=== PATIENT | male | born 1940 | race Caucasian/White ===

== ENCOUNTER → 2017-02-15 | Outpatient (CLI) | payer OTHER ==
[~2017-02-15] MED LIST: ATOR-22 PO; CLB/200 PO; ENOX40IN SQ; MULT-506 PO; OXYC-292 PO; TEST1INJ3 IM
[2017-02-15 12:46] LABS: HEMATOCRIT 52.1 % (42-52); MEAN CELL VOLUME 99.6 fL (80-100); MEAN CORPUSCULAR HEMOGLOBIN 33.7 pg (25-34); MEAN CORPUSCULAR HGB CONC 33.8 g/dl (32-36); PLATELET COUNT 260 K/uL (130-400); RED BLOOD COUNT 5.23 M/uL (4.7-6.1); WHITE BLOOD COUNT 7.25 K/uL (4.8-10.8)
[2017-02-15 13:10] LABS: ALT/SGPT 22 U/L (12-78); BLOOD UREA NITROGEN 18 mg/dl (7-18); BUN/CREATININE RATIO 15.3 (10-20); CALCIUM 9.3 mg/dl (8.5-10.1); CARBON DIOXIDE 30 mmol/L (21-32); CHLORIDE 102 mmol/L (98-107); GLUCOSE 102 mg/dl (70-99); POTASSIUM 4.4 mmol/L (3.5-5.1); SODIUM 138 mmol/L (136-145)
[2017-02-15 13:14] LABS: ALKALINE PHOSPHATASE 90 U/L (45-117); AST/SGOT 24 U/L (15-37)
--- NOTE | 2017-02-23 06:26 | CODING QUERY MEDICAL NECESSITY ---
SUPPORTING DIAGNOSIS NEEDED Dr. Arroyo, A supporting diagnosis is required for the test/procedure performed on this patient in order for us to be reimbursed by the patient's insurance. Please provide a supporting diagnosis for the following test/procedure listed below next to the test name along with your signature. *If there is no additional diagnosis for this patient that would support the following test/procedure please document that below next to the test/procedure. Test(s)/Procedure(s) that require a supporting diagnosis: * [id number] PSA DIAGNOSIS: DATE OF SERVICE: 02/15/17 Provider Signature: Date: Thank you John Kelly [facility] Information Management Once completed, please kindly fax back to [phone] For questions please call [phone]
== END | disposition home or self-care (01) ==
LOC: C.LABBFT 08:51
PROVIDERS: ATTEND Urology
DX: Z00.00 Encounter for general adult medical examination without abnormal findings (principal); E29.1 Testicular hypofunction; R35.1 Nocturia

== ENCOUNTER → 2017-08-03 | Outpatient (CLI) | payer OTHER ==
[2017-08-03 12:16] LABS: HEMATOCRIT 57.1 % (42-52); MEAN CELL VOLUME 101.2 fL (80-100); MEAN CORPUSCULAR HEMOGLOBIN 32.1 pg (25-34); MEAN CORPUSCULAR HGB CONC 31.7 g/dl (32-36); PLATELET COUNT 259 K/uL (130-400); RED BLOOD COUNT 5.64 M/uL (4.7-6.1); WHITE BLOOD COUNT 7.63 K/uL (4.8-10.8)
[2017-08-03 12:54] LABS: ALKALINE PHOSPHATASE 82 U/L (45-117); ALT/SGPT 19 U/L (12-78); AST/SGOT 25 U/L (15-37); BLOOD UREA NITROGEN 18 mg/dl (7-18); CALCIUM 9.2 mg/dl (8.5-10.1); CARBON DIOXIDE 29 mmol/L (21-32); CHLORIDE 102 mmol/L (98-107); GLUCOSE 100 mg/dl (70-99); POTASSIUM 4.1 mmol/L (3.5-5.1); SODIUM 137 mmol/L (136-145)
== END | disposition home or self-care (01) ==
LOC: C.LABBFT 09:23
PROVIDERS: ATTEND Urology
DX: R35.1 Nocturia (principal)

== ENCOUNTER → 2017-09-13 | Outpatient (CLI) | payer OTHER ==
--- NOTE | 2017-09-14 07:42 | PAP/PSG TECHNICIAN REPORT ---
[facility] Locomotive Mechanic Polysomnogram Report Study name: None Report date: 09/14/2017 Study date: 09/13/2017 Referring Physician: Radha Benoit M.D. Name: EMILYELISSA Interpreting Physician: Trae Falk M.D. Date of : 1940 Locomotive Mechanic: Bri Montenegro, PSGT. Sex: Male Age: 77 StudyType: PSG Weight: 254 lbs Height: 77 years, Height 6' 1" Neck Circum:17.5 inches BMI: 33.51 Medications: Transdermal -Scop 1.5 mg, Lipitor 80 mg, Aspirin 80 mg, Testosterone Cypionate 200 mg, ml injection. Patient History 77 yr. old male in room 5 presents to the sleep lab for a diagnostic sleep study. Pt. states that his complains of snoring and witnessed apnea's=5, Neck = 17.5 inches Parameters Monitored NPSG: E1-M2, E2-M1, Fp1-M2, Fp2-M1, F3-M2, F4-M2, F4-M1, C3-M2, C4-M2, C4-M1, O1-M2, O2-M2, O2-M1, T3-M2, T4-M1, P3-M2, P4-M1, CHIN1, CHIN2, HR, EKG, Legs, PFLOW, SNOR, FLOW, CFLOW, Tidal Volume, THOR, ABDO, SpO2, PLTH, CPRESS, ETCO2 Wave, ETCO2, pH Sleep Architecture Sleep Stages Time at Lights Off 10:56:59 PM STAGES Time (min.) TST (%) Time at Lights On 5:36:59 AM Wake 67.5 -- Total Recording Time (TRT) 401.50 min. N1 35.0 11 Total Sleep Period (TSP) 387.5 min. N2 224.5 68 Total Sleep Time (TST) 332.5min. N3 0.0 0 Awake Time 67.5 min. REM 73.0 22 Wake after Sleep Onset 55.0 min. Sleep Efficiency (SE) 83 % Sleep Onset Latency (GREGORIA) 12.5 min. Number of Stage 1 Shifts None Awakenings 7 Stage Changes 33 Number of REM periods 4 REM 73.0 22 REM Latency 63.0 min. NREM 259.5 78 Body Position Analysis Supine Right Left Side Prone Vertical Total Sleep Time (min.) 62.9 206.9 89.2 296.12 0.0 0.4 Total Sleep Time (%) 11% 62% 27% 89 0% N/A% Total Sleep Time REM (min.) 0.0 59.0 14.0 None 0.0 0.0 Total Sleep Time NREM (min.) 36.4 147.9 75.2 None 0.0 0.0 Intermittent Wake (min.) 26.5 11.4 29.2 None 0.0 0.4 Total Sleep Period (%) 16% None None None None None Arousals Myoclonus (PLM) * Events Count Index Events Count Index Spontaneous 39 7 Events Awake (PLMW) 0 0.0 Respiratory 3 0.5 Events Asleep w/ Arousal (PLMA) 1 0.2 PLM 1 0 Events Asleep w/o Arousal (PLMS) 22 4.0 Snoring 17 3 Total Asleep 23 4.2 Total 60 11 Total 23 3 Respiratory Analysis * CA OA MA CH H RERA Total Count 3 3 0 0 37 16 43 Index 0.5 0.5 0.0 0 6.7 3 10.6 Mean Duration 17.5 14.1 0.0 0.00 19.4 13.1 17.3 Longest Duration 21.7 16.4 0.0 0.00 0.0 21.2 36.2 Respiratory Event Summary Total Supine ~Supine Right Left Prone REM NREM Apneas Count 6 1 5 2 3 N/A 0 6 Index 1.1 2 1 0.6 2.0 N/A 0 1 Hypopneas (4% Desat) Count 37 6 31 19 12 N/A 16 21 Index 6.7 9.9 6 5.5 8.1 N/A 13.2 4.9 Apneas & All Hypopneas Count 43 7 36 21 15 N/A 16 27 Index 7.8 12 7 6 10 N/A 13.2 6.2 Respiratory Events (Electric Meter Repairer Apprentice+All Hyp+RERA) Count 43 14 45 21 24 N/A 16 27 Index 10.6 23 9 6.1 16.1 N/A 15.6 9.2 Respiratory Related Arousal Count 3 14 1 1 0 N/A 1 2 Index 0.5 3 0 0 0 N/A 1 0 Snoring Analysis Supine Right Left Prone REM NREM Total Snore duration 36.4 min Snores count 173 496 647 N/A 159 1,157 1,316 Snore mean duration 1.7 Sec Snores index 285 144 435 N/A 130.7 267.5 237.5 TST with snoring (%) 11.0% Desaturation Event Summary: Minimum %SpO2 Event Count Mean/Min/Max Duration(sec.) Desaturation Index % Time In Bed > 90 30 35.0 / 10.3 / 59.5 54.2 8.6 86 - 90 70 29.9 / 8.3 / 60.0 13.7 79.4 81 - 85 8 16.4 / 8.3 / 24.5 10.4 11.9 76 - 80 0 N/A 0.0 0.1 71 - 75 0 N/A 0.0 0.0 66 - 70 0 N/A 0.0 0.0 61 - 65 0 N/A 0.0 0.0 56 - 60 0 N/A 0.0 0.0 51 - 55 0 N/A 0.0 0.0 < 50 0 N/A 0.0 0.0 Total REM NREM Awake <50% 0.0 min. 0.0 min. 0.0 min. 0.0 min. 51 - 60% 0.0 min. 0.0 min. 0.0 min. 0.0 min. 61 - 70% 0.0 min. 0.0 min. 0.0 min. 0.0 min. 71 - 80% 0.4 min. 0.2 min. 0.1 min. 0.1 min. 81 - 90% 353.4 min. 60.5 min. 239.8 min. 53.2 min. 91 - 100% 33.2 min. 11.7 min. 16.8 min. 4.8 min. Average 88 89 88 87 Minimum SpO2 77 78 79 77 Desaturation Event Index 12.5 13.2 15.5 0.9 # Desat. Events below 89% 82 15 67 N/A Time(%) with Saturation below 89% 66.2 9.3 45.8 11.2 Time(min.) with Saturation below 89% 256.4 35.9 177.3 43.2 Time (mins) REM (mins) NREM (mins) % of TST SpO2 Below 90% 83 16 N67 81.3 SpO2 Below 88% 43 0 0 39 Heart Rate Analysis Min (bpm) Max (bpm) Average (bpm) Awake 53 300 66 NREM 54 83 62 REM 56 127 66 Overall 54 127 63 Supplemental O2 Values Minimum O2 level: None Value Start Time End Time Locomotive Mechanic Comments PSG Study slept in the right, left, and supine positions. No cardiac arrhythmia or PLM's noted. No bruxism noted. Snoring was noted and scored as a 3 on a scale of 1 through 5. (0=no snoring, 5=snoring loud enough to be heard through a closed door or down the [address] way) Mr. Collier awoke to use the restroom one time during the night. stated, I did not sleep as well as I do when I am in my own bed. The final report will be interpreted and signed by a sleep physician. The completed physician report will then be placed in the patient medical record. Therapy (cm H2O) 0 TIB (min.) 400.0 TST (min.) 332.5 Sleep Onset (min.) 12.5 REM Onset From Sleep (min.) 63.0 Sleep Efficiency % 83 Wakefulness (%) 17 Wakefulness (min.) 67.5 NREM 1 (%) 11 NREM 1 (min.) 35.0 NREM 2 (%) 68 NREM 2 (min.) 224.5 NREM 3 (%) 0 NREM 3 (min.) 0.0 REM (%) 22 REM (min.) 73.0 # Arousals 60 Arousal Index 11 # Snore 1,316 Snore Index 237.5 AHI 7.8 AHI Supine 12 AHI Non-Supine 7 NREM AHI 6.2 REM AHI 13.2 RDI 10.6 # Obstructive Apnea 3 # Central Apnea 3 # Mixed Apnea 0 # Hypopneas 37 RERAs 16 Total Respiratory Events 60 Time Below SpO2 89% (min.) 213.2 Mean NREM SpO2 (%) 88 Mean REM SpO2 (%) 89 Mean Sleep SpO2 (%) 88 Min NREM SpO2 (%) 79 Min REM SpO2 (%) 78 Position Supine (min.) 62.9 Position Non-supine (min.) 296.1 LM Index Sleep 4.2 LM Index NREM 2.3 LM Index REM 10.7 Mean Heart Rate (bpm) 63 Min Heart Rate (bpm) 54
--- NOTE | 2017-09-16 12:34 | POLYSOMNOGRAPH REPORT ---
CLINICAL DATA: A 77-year-old male with BMI of 33.5, referred by Dr. Mateus Benoit for a diagnostic sleep study. He has loud snoring and witnessed apnea. SLEEP ARCHITECTURE: Total sleep period was 387.5 minutes. Total sleep time was 332.5 minutes, divided between 259.5 minutes of non-REM sleep and 73 minutes of REM sleep. Sleep onset latency was 12.5 minutes. REM latency was 63 minutes. Sleep efficiency was 82%. Wake after sleep onset was 55 minutes. Sleep consisted of stage N1 11%, stage N2 68%, and REM 22%. AROUSAL DATA: 60 arousals were recorded for an index of 11 per hour. PLM DATA: 23 limb movements during sleep were noted for an index of 4.2 per hour with arousal index of 0.2 per hour. RESPIRATORY DATA: Mild sleep apnea was documented. The AHI was 7.8. The RDI was 10.6. There were 3 central and 3 obstructive apneic episodes. The longest duration of apnea was 21.7 seconds. There were 37 hypopneic episodes with a mean duration of 19.4 seconds. There were 16 RERAs, the longest duration of which was 21.2 seconds. OXIMETRY DATA: Nocturnal hypoxemia was seen. Oxygen jeb was 78% during REM. Mean saturation was 88%. Time below 88% was 43 minutes. EKG: Heart rates ranged from 54-127 beats per minute. No arrhythmias were noted. SHOP COORDINATOR'S COMMENTS: The patient slept in the right, left, and supine positions. Snoring was moderate, rated 3 on a scale of 1-5. IMPRESSION: Mild sleep apnea/hypopnea with an AHI of 7.8 and an RDI of 10.6 with nocturnal hypoxemia. RECOMMENDATIONS: The patient may benefit from a repeat sleep study with CPAP, use of auto CPAP or use of an oral appliance. Clinical correlation is needed. [facility]PITALCordell
== END | disposition home or self-care (01) ==
LOC: C.NEUR 21:00
PROVIDERS: ATTEND Student in an Organized Health Care Education/Training Program
DX: R06.83 Snoring (principal); G47.10 Hypersomnia, unspecified; G47.33 Obstructive sleep apnea (adult) (pediatric)

== ENCOUNTER → 2017-12-19 | Outpatient (CLI) | payer OTHER ==
--- NOTE | 2017-12-20 05:38 | PAP/PSG TECHNICIAN REPORT ---
[facility] Dope Sprayer Polysomnogram Report Study name: None Report date: 12/20/2017 Study date: 12/19/2017 Referring Physician: Beth Wilkinson Name: ELISSA DIAZ Interpreting Physician: Trae Falk M.D. Date of : 1940 Dope Sprayer: Dave Garza RPSGT. Sex: Male Age: 77 StudyType: PSG PAP Weight: 254 lbs Height: 77 years, Height 6' 1" BMI: 33.51 Medications: MIRALAX, LIPITOR 80 MG, ASPIRIN 81 MG, TESTOSTERONE Patient History PATIENT HAD A SLEEP STUDY DONE IN THE FALL OF 2016 AND WAS POSITIVE FOR MILD PIYUSH AND SEVERE HYPOXEMIA. HE IS HERE TODAY FOR A CPAP TITRATION AND EVALUATION FOR OXYGEN TITRATION. RM 6 Parameters Monitored NPSG: E1-M2, E2-M1, Fp1-M2, Fp2-M1, F3-M2, F4-M2, F4-M1, C3-M2, C4-M2, C4-M1, O1-M2, O2-M2, O2-M1, T3-M2, T4-M1, P3-M2, P4-M1, CHIN1, CHIN2, HR, EKG, Legs, PFLOW, SNOR, FLOW, CFLOW, Tidal Volume, THOR, ABDO, SpO2, PLTH, CPRESS, ETCO2 Wave, ETCO2, pH Sleep Architecture Sleep Stages Time at Lights Off 10:03:05 PM STAGES Time (min.) TST (%) Time at Lights On 5:25:35 AM Wake 142.5 -- Total Recording Time (TRT) 443.00 min. N1 37.0 12 Total Sleep Period (TSP) 427.5 min. N2 226.5 76 Total Sleep Time (TST) 300.0min. N3 0.0 0 Awake Time 143.0 min. REM 36.5 12 Wake after Sleep Onset 127.5 min. Sleep Efficiency (SE) 68 % Sleep Onset Latency (GREGORIA) 15.0 min. Number of Stage 1 Shifts None Awakenings 31 Stage Changes 102 Number of REM periods 7 REM 36.5 12 REM Latency 84.5 min. NREM 263.5 88 Body Position Analysis Supine Right Left Side Prone Vertical Total Sleep Time (min.) 107.0 187.5 61.5 249.00 0.0 0.0 Total Sleep Time (%) 17% 63% 21% 83 0% N/A% Total Sleep Time REM (min.) 1.5 26.5 8.5 None 0.0 0.0 Total Sleep Time NREM (min.) 49.5 161.0 53.0 None 0.0 0.0 Intermittent Wake (min.) 56.0 65.2 21.4 None 0.0 0.0 Total Sleep Period (%) 24% None None None None None Arousals Myoclonus (PLM) * Events Count Index Events Count Index Spontaneous 19 4 Events Awake (PLMW) 97 40.8 Respiratory 0 0.0 Events Asleep w/ Arousal (PLMA) 10 2.0 PLM 10 2 Events Asleep w/o Arousal (PLMS) 171 34.2 Snoring 0 0 Total Asleep 181 36.2 Total 29 6 Total 278 38 Respiratory Analysis * CA OA MA CH H RERA Total Count 0 2 0 0 5 0 7 Index 0.0 0.4 0.0 0 1.0 0 1.4 Mean Duration 0.0 13.3 0.0 0.00 20.9 0.0 18.7 Longest Duration 0.0 13.6 0.0 0.00 0.0 0.0 30.5 Respiratory Event Summary Total Supine ~Supine Right Left Prone REM NREM Apneas Count 2 0 2 1 1 N/A 1 1 Index 0.4 0 0 0.3 1.0 N/A 2 0 Hypopneas (4% Desat) Count 5 3 2 1 1 N/A 2 3 Index 1.0 3.5 0 0.3 1.0 N/A 3.3 0.7 Apneas & All Hypopneas Count 7 3 4 2 2 N/A 3 4 Index 1.4 4 1 1 2 N/A 4.9 0.9 Respiratory Events (Materials Manager+All Hyp+RERA) Count 7 3 4 2 2 N/A 3 4 Index 1.4 4 1 0.6 2.0 N/A 4.9 0.9 Respiratory Related Arousal Count 0 3 0 0 0 N/A 0 0 Index 0.0 0 0 0 0 N/A 0 0 Snoring Analysis Supine Right Left Prone REM NREM Total Snore duration 1.4 min Snores count 5 19 22 N/A 6 40 46 Snore mean duration 1.8 Sec Snores index 6 6 21 N/A 9.9 9.1 9.2 TST with snoring (%) 0.5% Desaturation Event Summary: Minimum %SpO2 Event Count Mean/Min/Max Duration(sec.) Desaturation Index % Time In Bed > 90 11 38.9 / 17.3 / 83.7 4.1 37.1 86 - 90 3 20.3 / 15.8 / 25.5 0.7 62.5 81 - 85 0 N/A 0.0 0.4 76 - 80 0 N/A 0.0 0.0 71 - 75 0 N/A 0.0 0.0 66 - 70 0 N/A 0.0 0.0 61 - 65 0 N/A 0.0 0.0 56 - 60 0 N/A 0.0 0.0 51 - 55 0 N/A 0.0 0.0 < 50 0 N/A 0.0 0.0 Total REM NREM Awake <50% 0.0 min. 0.0 min. 0.0 min. 0.0 min. 51 - 60% 0.0 min. 0.0 min. 0.0 min. 0.0 min. 61 - 70% 0.0 min. 0.0 min. 0.0 min. 0.0 min. 71 - 80% 0.0 min. 0.0 min. 0.0 min. 0.0 min. 81 - 90% 270.4 min. 18.6 min. 172.4 min. 79.4 min. 91 - 100% 159.3 min. 17.8 min. 90.9 min. 50.6 min. Average 90 90 90 90 Minimum SpO2 81 85 84 81 Desaturation Event Index 1.8 4.9 0.9 2.5 # Desat. Events below 89% 9 3 3 3 Time(%) with Saturation below 89% 21.7 1.7 14.5 5.5 Time(min.) with Saturation below 89% 93.3 7.3 62.5 23.6 Time (mins) REM (mins) NREM (mins) % of TST SpO2 Below 90% 7 3 N4 39.2 SpO2 Below 88% 4 0 0 8 Heart Rate Analysis Min (bpm) Max (bpm) Average (bpm) Awake 63 214 75 NREM 59 81 67 REM 61 97 73 Overall 59 97 68 Supplemental O2 Values Minimum O2 level: None Value Start Time End Time Dope Sprayer Comments Mr. Diaz slept in the right, left and supine positions. No cardiac arrhythmia noted. Leg movements noted. No bruxism noted. CPAP was initiated at +4 CMH2O and up-titrated to an optimal level of +6 CMH2O, which nearly eliminated all respiratory events and snoring. A Marie and Paykel size large Simplus mask was used during titration Mr. Diaz awoke to use the restroom 2 times during the night. Mr. Diaz stated I slept as well as I do when I am in my own bed. 1l/min of 02 was added around 1:59 am. The final report will be interpreted and signed by a sleep physician. The completed physician report will then be placed in the patient medical record. Therapy Event: Therapy (cm H20) 4 5 6 Total Time at Pressure (min.) 91.0 150.5 201.1 TST at Pressure (min.) 42.5 111.0 146.6 # Periods 1 1 1 Sleep Onset (min.) 15.0 0.0 0.0 REM Onset (min.) N/A 8.5 89.6 Sleep Efficiency % 46 73 72 Wakefulness (%) 53.3 26.3 27.1 Wakefulness (min.) 48.5 39.5 54.5 NREM 1 (%) 8.2 8.3 8.5 NREM 1 (min.) 7.5 12.5 17.0 NREM 2 (%) 38.4 54.5 54.5 NREM 2 (min.) 35.0 82.0 109.6 NREM 3 (%) 0.0 0.0 0.0 NREM 3 (min.) 0.0 0.0 0.0 REM (%) 0.0 11.0 9.9 REM (min.) 0.0 16.5 20.0 # Arousals 5 5 19 Arousal Index 7.1 2.7 7.8 # Snore 4 17 25 Snore Index 5.7 9.2 10.2 AHI 4.2 1.6 0.4 AHI Supine 4.4 0.0 0.0 AHI Non-Supine 0.0 1.8 0.4 NREM AHI 4.2 0.6 0.0 REM AHI N/A 7.3 3.0 RDI 4.2 1.6 0.4 # Obstructive 0 2 0 # Central Ap 0 0 0 # Mixed 0 0 0 # Hypopneas 3 1 1 RERAS 0 0 0 Total Respiratory Events 3 3 1 Time Below SpO2 89.00% (min.) 27.5 39.8 2.4 Mean NREM SpO2 (%) 88 89 91 Mean REM SpO2 (%) N/A 89 91 Mean Sleep SpO2 (%) 88 89 91 Min NREM SpO2 (%) 84 85 88 Min REM SpO2 (%) N/A 85 88 Position Supine (min.) 40.5 10.0 0.5 Position Non-supine (min.) 2.0 100.9 146.1 LM Index Sleep 18.4 31.9 44.6 LM Index NREM 18.4 34.9 51.7 LM Index REM N/A 14.5 0.0 Mean Heart Rate (bpm) 72 69 66 Min Heart Rate (bpm) 64 60 59
--- NOTE | 2017-12-22 14:59 | POLYSOMNOGRAPH REPORT ---
CLINICAL DATA: A 77-year-old male with BMI of 33.5 referred by Beth Wilkinson for CPAP titration study. He had a sleep study in the fall of 2017 which showed mild PIYUSH and severe hypoxemia. He is referred for a CPAP titration study. SLEEP ARCHITECTURE: Total sleep period was 427.5 minutes. Total sleep time was 300 minutes divided between 263.5 minutes of non-REM sleep and 36.5 minutes of REM sleep. Sleep onset latency was 15 minutes. REM latency was 84.5 minutes. Sleep efficiency was 68%. Wake after sleep onset was 127.5 minutes. Sleep consisted of stage N1 12%, stage N2 76%, and REM 12%. AROUSAL DATA: Twenty-nine arousals were recorded for an index of 6 per hour. PLM DATA: Mildly elevated limb movements during sleep were noted. There were 181 limb movements during sleep noted for an index of 36.2 per hour with arousal index of 2 per hour. RESPIRATORY DATA: The AHI was 1.4. There were 2 obstructive apneic episodes. The longest apneic episode was 13.6 seconds. There were 5 hypopneic episodes. The mean duration of hypopnea was 20.9 seconds. OXIMETRY DATA: Transient hypoxemia was seen. Oxygen jeb was 84% during non-REM sleep. The mean saturation was 90%. Time below 88% was 4 minutes. EKG: Heart rates ranged from 59 to 97 beats per minute. No arrhythmias were noted. BIT GRINDER'S COMMENTS: The patient slept in the right, left, and supine positions. He used a Marie [employer] Paykel large Simplus mask. He was started on CPAP and titrated up to 6 cm of water pressure. Despite of control of sleep apnea, hypoxemia persisted which required the addition of oxygen at 1 liter per minute at 2 a.m. At his final pressure setting of 6 cm of water pressure, the patient slept for 146.6 minutes with an AHI of 0.4. IMPRESSION: Obstructive sleep apnea with nocturnal hypoxemia corrected with CPAP 6 cm water pressure, 1 liter per minute oxygen using a Marie and Paykel large Simplus mask. RECOMMENDATIONS: The patient should be started on the above noted treatment regimen and seen back in followup within 90 days to document efficacy and compliance. [facility]
== END | disposition home or self-care (01) ==
LOC: C.NEUR 21:00
PROVIDERS: ATTEND Nurse Practitioner Family
DX: G47.33 Obstructive sleep apnea (adult) (pediatric) (principal)

== ENCOUNTER → 2018-01-27 | Outpatient (CLI) | payer OTHER ==
[2018-01-27 12:28] LABS: HEMATOCRIT 41.5 % (42-52); MEAN CELL VOLUME 97.9 fL (80-100); MEAN CORPUSCULAR HGB CONC 33.7 g/dl (32-36); MEAN PLATELET VOLUME 9.3 fL (7.4-10.4); PLATELET COUNT 282 K/uL (130-400); RED CELL DISTRIBUTION WIDTH CV 13.4 % (11.5-14.5); WHITE BLOOD COUNT 6.62 K/uL (4.8-10.8)
[2018-01-27 12:38] LABS: ALBUMIN 3.6 gm/dl (3.4-5.0); ALT/SGPT 33 U/L (12-78); AST/SGOT 26 U/L (15-37); BLOOD UREA NITROGEN 26 mg/dl (7-18); CALCIUM 9.3 mg/dl (8.5-10.1); CARBON DIOXIDE 29 mmol/L (21-32); CREATININE 0.99 mg/dl (0.60-1.40); GLUCOSE 109 mg/dl (70-99); POTASSIUM 4.2 mmol/L (3.5-5.1); SODIUM 138 mmol/L (136-145)
[2018-01-27 12:42] LABS: ALKALINE PHOSPHATASE 93 U/L (45-117); TOTAL PROTEIN 7.2 gm/dl (6.4-8.2)
== END | disposition home or self-care (01) ==
LOC: C.LABBFT 08:23
PROVIDERS: ATTEND Urology
DX: N40.1 Benign prostatic hyperplasia with lower urinary tract symptoms (principal)

== ENCOUNTER 2023-07-15 08:21 | Observation (INO) ==
--- NOTE | 2023-06-30 11:55 | Anesthesiology Consultation ---
Date of Service June 30, 2023 Assessment & Plan (1) Encounter for pre-operative examination: - COVID screening: Per assessment on 06/30: No known COVID-19 positive contacts or current COVID-19 related symptoms. No recent Covid positive test result. - S/P Lap ventral hernia repair with mesh (10/29/22): Grade view 1, MAC#4, ETT 8.0 at [facility] - Cardiology visit (02/01/23): "The patient is stable from cardiovascular standpoint. He demonstrates excellent control of his blood pressure in the office today. His aortic root is borderline dilated on the current echocardiogram. 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 We will continue with yearly surveillance echocardiograms. We have discussed importance of continued exercise. Highly complex medical issues were managed and discussed today. Plan.. Continue current medications.. Increase walking program.. Consider home blood pressure monitoring.. Lipid panel per primary care team.. Schedule echocardiogram at next visit.. Follow-up in 6 months." Chart Review Chart Review: Acceptable Risk for Surgery and Patient NOT seen in Pre Admission Testing History Surgery Operation Date: 07/15/23 07:15 Proposed Procedures p Laparoscopy Repair of Recurrent Left Inguinal Hernia with Mesh - Jose Mcdonough DO s Open Repair of an Incisional Hernia with Mesh - Jose Mcdonough, Height/Weight Height: 6 ft 2 in Weight: 104.326 kg Allergies Allergy/AdvReac Type Severity Reaction Status Date / Time No Known Allergies Allergy Verified 06/04/23 09:07 Medications Home Medications Medication Instructions Recorded Confirmed Last Taken aspirin 81 mg chewable tablet 81 mg PO [id number] 06/20/20 06/30/23 09/30/22 08:00 atorvastatin 80 mg tablet 80 mg PO UD 06/20/20 06/30/23 10/28/22 22:00 multivitamin (Daily Multi-Vitamin 1 tab PO QAM 06/20/20 06/30/23 10/21/22 08:00 tablet) saw palmetto 500 mg capsule 500 mg PO BID 06/20/20 06/30/23 10/21/22 08:00 turmeric 400 mg capsule 400 mg PO PM 03/26/21 06/30/23 10/21/22 08:00 tamsulosin 0.4 mg capsule 0.4 mg PO DAILY #90 caps 09/02/22 06/30/2310/28/22 08:00 atorvastatin 40 mg tablet 40 mg PO UD 06/30/23 06/30/23 Unknown elderberry fruit 200 mg capsule 200 mg PO BID 06/30/23 06/30/23 Unknown magnesium 200 mg tablet 200 mg PO QAM 06/30/23 06/30/23 Unknown trazodone 100 mg tablet 100 mg PO HS 06/30/23 06/30/23 Unknown Past Medical History Medical History Aortic stenosis BPH with obstruction/lower urinary tract symptoms Diastolic dysfunction Grade 1 (echo 11/2022) History of COVID-19 Early 07/2022- fatigue, resolved Hyperlipidemia LVH (left ventricular hypertrophy) Mitral regurgitation Follows w/ Dr Khalil PIYUSH (obstructive sleep apnea) CPAP Recurrent bilateral inguinal hernia Past Family History Family History Father Cardiac disorder Brother Cardiac disorder Mother Hypertension Cancer Past Surgical History Surgical History H/O ventral hernia repair Laparoscopic Ventral Hernia Repair with Mesh History of colonoscopy 2021 History of hip replacement R/L Hx of oral surgery Broken tooth repair S/P left inguinal hernia repair 07-22-21 LIH repair 04-06-22 LIH repair S/P right inguinal hernia repair RIH repair Social History Smoking Status: Former smoker tobacco type: cigarettes Smoking cigarettes per day: quit "long time ago" Do You Dip or Chew Tobacco: No Hx Alcohol Use: Yes Alcohol type: beer alcohol intake frequency: holidays/special occasions only Hx Substance Use: No substance use type: does not use Testing Laboratory Results 05/25/23 WBC 7.28 H/H 13.7/42.7 PLATELETS 302 SODIUM 141 POTASSIUM 4.5 CHLORIDE 104 CO2 28 BUN 17 CREATININE 0.9 GLUCOSE 93 Electrocardiogram Date: 06/07/23 Findings: + NSR @ (66) Echocardiogram Date: 12/15/22 EF 65-70%. No regional wall motion abnormalities. Borderline concentric LVH. Mild MR. Mild aortic root dilatation (4.0 cm in diameter). Mildly dilated ascending aorta (4.2 cm in diameter). Grade 1 diastolic dysfunction.
[~2023-07-15 08:21] MED LIST changes: -ATOR-22 PO; -CLB/200 PO; -ENOX40IN SQ; +LR 15ML/HR IV SCH; -MULT-506 PO; -OXYC-292 PO; -TEST1INJ3 IM; +ceFAZolin 2000MG 2,000 MG/15 ML SYR IV SCH
[2023-07-15] MEDS ORDERED: ASPIRIN 81 MG CHEW PO SCH (09:00)
[2023-07-15] MEDS ORDERED: fentaNYL citrate PF 100 MCG/2 ML VIAL ONE (09:10)
[2023-07-15] MEDS ORDERED: ROCURONIUM BROMIDE 10 MG/ML 5 ML VIAL IV ONE (09:10)
[2023-07-15] MEDS ORDERED: PROPOFOL IV EMULSION 10 MG/ML 20 ML VIAL IV ONE (09:10)
[2023-07-15] MEDS ORDERED: LIDOCAINE 2% 2 ML VIAL/AMP(20MG/ML) INFIL ONE (09:10)
--- NOTE | 2023-07-15 09:15 | History & Physical Report ---
Date of Service July 15, 2023 Assessment & Plan (1) Left groin pain: Plan: We will plan on performing a laparoscopy through his supraumbilical hernia site. Repairing the obvious recurrent left inguinal hernia with mesh. I will evaluate his right inguinal hernia although he states this does not bother him at all and he would prefer to not have that repaired unless there is bowel incarcerated. We will then repair the incisional hernia at the end of the case. We discussed the risk which include bleeding infection injury to another structure such as ureter bladder bowel etc., DVT, PE, AR, CVA etc. Following our discussion I answered all of his questions. We will proceed today with laparoscopic repair of a recurrent left inguinal hernia with mesh as well as repair of a supraumbilical incisional hernia. 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 Rivero. He also has a small supraumbilical incisional hernia from a prior laparoscopy. There has been no changes to his health history since I seen him last in the office. Allergies Allergy/AdvReac Type Severity Reaction Status Date / Time No Known Allergies Allergy Verified 07/15/23 08:57 Home Medications Medication Instructions Recorded Confirmed Type aspirin 81 mg chewable tablet 81 mg PO 2XWK 06/20/20 07/15/23 History atorvastatin 80 mg tablet 80 mg PO UD 06/20/20 07/15/23 History multivitamin (Daily Multi-Vitamin 1 tab PO QAM 06/20/20 07/15/23 History tablet) saw palmetto 500 mg capsule 500 mg PO BID 06/20/20 07/15/23 History turmeric 400 mg capsule 400 mg PO PM 03/26/21 07/15/23 History tamsulosin 0.4 mg capsule 0.4 mg PO DAILY #90 caps 09/02/22 07/15/23 Rx atorvastatin 40 mg tablet 40 mg PO UD 06/30/23 07/15/23 History elderberry fruit 200 mg capsule 200 mg PO BID 06/30/23 07/15/23 History magnesium 200 mg tablet 200 mg PO QAM 06/30/23 07/15/23 History trazodone 100 mg tablet 100 mg PO HS 06/30/23 07/15/23 History polyethylene glycol 3350 17 17 g PO DAILY 07/15/23 07/15/23 History gram/dose oral powder (Miralax) Past Med/Surg History Medical History Aortic stenosis BPH with obstruction/lower urinary tract symptoms Diastolic dysfunction Grade 1 (echo 11/2022) History of COVID-19 Early 07/2022- fatigue, resolved Hyperlipidemia LVH (left ventricular hypertrophy) Mitral regurgitation Follows w/ Dr Khalil PIYUSH (obstructive sleep apnea) CPAP Recurrent bilateral inguinal hernia Surgical History H/O ventral hernia repair Laparoscopic Ventral Hernia Repair with Mesh History of colonoscopy 2021 History of hip replacement R/L Hx of oral surgery Broken tooth repair S/P left inguinal hernia repair 07-22-21 LIH repair 04-06-22 LIH repair S/P right inguinal hernia repair RIH repair Family History Father Cardiac disorder Brother Cardiac disorder Mother Hypertension Cancer Social History Smoking Status: Former smoker Cigarettes Per Day: quit "long time ago"; Second Hand Exposure: No; Do You Dip or Chew Tobacco: No; Tobacco Cessation Education Requested by Patient: No Hx Alcohol Use: Yes Alcohol type: beer Hx Substance Use: No Preferred Language: Maldivian Communication Ability: Effective Visual Impairment: No Limitations Bagging Salvager Required: No Beliefs That Will Affect Care: None marital status: Current Living Situation: Spouse current occupational status: retired How many Children do You have: 4 Other Information That Helps Us Care for You: No Feels Safe at Home: Yes Safety Concerns: Feels Safe At This Time Assistive Devices: Cane, CPAP and Glasses Assistive Devices Comment: cane prn Review of Systems All systems reviewed & are unremarkable except as noted in HPI & below Physical Exam Constitutional: WD/WN, vitals as above no acute distress and not ill appearing Eyes: PERRL, conjunctivae normal, anicteric sclerae EOM intact bilaterally ENMT: external ear and nose normal, oropharynx normal Ears: no hearing impairment Neck: trachea midline, no thyromegaly Respiratory: normal respiratory effort; no respiratory distress and does not use accessory muscles Cardiovascular: Rate/Rhythm: regular rate and regular rhythm Gastrointestinal (Abdomen): Soft. Small incisional supraumbilical hernia. He has a recurrent left inguinal hernia. On imaging there is apparently a small recurrent right inguinal hernia but it is not appreciable on physical exam and is asymptomatic Skin: no rashes, warm and dry Psychiatric: Orientation: alert, oriented x 3 and cooperative Results & Data Vital Signs (Past 12 Hours) Vital Signs Temp Pulse Resp BP Pulse Ox O2 Del Method 07/15/23 08:45 36.6 C 68 18 126/76 96 Room Air
[2023-07-15] MEDS ORDERED: ONDANSETRON INJ 2 MG/ML 2 ML VIAL IV PRN ×2 (09:24→12:59)
[2023-07-15] MEDS ORDERED: ePHEDrine sulfate 50 MG/ML AMP IV PRN (09:24)
[2023-07-15] MEDS ORDERED: ATROPINE SULFATE 0.1 MG/ML 10ML SYR IV PRN (09:24)
[2023-07-15] MEDS ORDERED: BUPIVACAINE/EPINEPHRINE 0.5% MPF 1:200,000 30 ML VIAL ONE ×2 (09:50→11:03)
[2023-07-15] MEDS ORDERED: DEXAMETHASONE SOD INJ 4 MG/ML VIAL ONE (10:35)
[2023-07-15] MEDS ORDERED: ONDANSETRON INJ 2 MG/ML 2 ML VIAL ONE (10:35)
[2023-07-15] MEDS ORDERED: SUGAMMADEX SODIUM 200 MG/2 ML VIAL IV ONE (10:58)
--- NOTE | 2023-07-15 11:52 | Operative Report ---
[facility] Post Operative Report Pre & Post Diagnosis Operation Date: 07/15/23 09:55 Pre-Op Diagnosis: Recurrent Bilateral Inguinal Hernia, Incisional Hernia Post-Op Diagnosis: Recurrent Bilateral Inguinal Hernia, Ventral Hernia, Incisional Hernia I identified the patient and participated in the time-out.: Yes Procedure Operation Date: 07/15/23 09:55 Actual Procedures p Left Laparoscopic Repair of Recurrent Inguinal Hernia with Mesh, Laparoscopic Ventral Hernia Repair ( 2 cm)with Mesh(Left) - Jose Mcdonough DO s Open Repair of an Incisional Hernia ( 3 cm) (Not Applicable) - Jose Mcdonough DO Surgeon Jose Mcdonough DO 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 After successful intubation a Mathew catheter was placed. The abdomen was shaved and sterilely prepped and draped in usual fashion. I began at his supraumbilical incisional hernia. I made an incision directly over it and carried it down through the soft tissue using cautery. I opened the hernia sac exposing the fascial edges. 0 Vicryl stay sutures were placed. A finger sweep was performed. A 12 mm Mobley trocar was placed and the abdomen was insufflated to 18 mmHg. I inserted the laparoscope. There were some adhesions to the anterior abdominal wall from his prior hernia repair with mesh. I was able to place a right lower quadrant and right mid abdominal 5 mm trocars under direct vision. Harmonic scalpel was used to take down the adhesions for better visualization. We then examined the entire abdomen. There was a recurrent right inguinal hernia with no incarceration recurrent left inguinal hernia with no incarceration we also found a previously unknown ventral hernia in the left lower quadrant. This was small probably 2 cm. I began by taking down the hernia sac of his left inguinal hernia. I could not readily identify the cord and cord structures therefore I limited the dissection. Once I had the peritoneal sac reduced I then placed a 12 cm circular Surgimesh into the abdomen via the camera port site. It was unrolled and placed over the left inguinal hernia defect. It covered for several centimeters in all directions. I used a pro tack device to secure it with 1 pro tack into the pubic bone and the remainder above the iliopubic tract. It laid nice and flat and tension- free. The central Prolene stitch was removed. I then reduced the fat which was in the 2 cm left lower quadrant ventral hernia. We made a small incision directly over the mid portion of the defect and a fascial closure device advanced through it. A 10 cm circular Surgimesh was placed in the abdomen and unrolled as well. The central Prolene stitch was grasped using the fascial closure device pulling the mesh up to the undersurface of the defect. It was also secured using a pro tack device. It covered the entire defect nicely. I opted to repair this because his pain was always in the left lower quadrant and this is where the second defect was. In the office we had discussed the recurrent right inguinal hernia. We felt it might be too much to fix all of these at once and he was also concerned about tack pain and postoperative pain. We therefore purposefully made the decision not to repair the recurrent right inguinal hernia. Final look around the abdomen showed adequate hemostasis and no other abnormalities. The trocars were all removed and the abdomen desufflated. The incisional hernia was closed using 0 Ethibond in simple interrupted fashion. This hernia measured approximately 3 cm. There was minimal tension since it was a linear type of hernia. This wound was irrigated and closed using 3-0 Vicryl for deep layers and 4 Monocryl for skin. The remainder of the trocar sites were closed using 4-0 Monocryl. Marcaine with epinephrine was injected around the incision for postoperative analgesia and skin glue used as a dressing. The patient was awakened extubated and transferred recovery in stable condition. My physician library services assistant was present through the entire case was instrumental in assisting with access to the abdomen running the camera for my dissection wound closure and dressing placement. I attest to the content of the Intraoperative Record and any orders documented therein. Any exceptions are noted below.
[2023-07-15] MEDS: HYDROmorphone INJ 1 MG/ML SYRINGE IV PRN ×4 (11:58→12:20)
--- NOTE | 2023-07-15 12:31 | Anesthesiology Progress Note ---
Date of Service July 15, 2023 Anesthesia Post Procedure Vital Signs Vital Signs: Temp Pulse Resp BP Pulse Ox O2 Del Method 07/15/23 12:00 65 15 130/75 95 Room Air 07/15/23 11:50 66 18 125/70 98 Room Air 07/15/23 11:40 66 17 132/70 97 Room Air 07/15/23 11:30 69 16 130/69 96 Room Air 07/15/23 11:21 36.9 C 71 18 136/70 97 Room Air 07/15/23 08:45 36.6 C 68 18 126/76 96 Room Air Pain Intensity Abdomen: Pain Intensity: 4 Transfer of Care Handoff Completed per policy Notes Mental Status: alert / awake / arousable and participated in evaluation Nausea / Vomiting: adequately controlled Pain: adequately controlled Airway Patency, RR, SpO2: stable & adequate BP & HR: stable & adequate Hydration State: stable & adequate Anesthetic Complications: no major complications apparent and Pt Satisfied with anesthetic care
[2023-07-15] MEDS ORDERED: LACTATED RINGER'S 1,000 ML IV SCH (12:59)
[2023-07-15] MEDS ORDERED: ACETAMINOPHEN 325 MG TAB PO PRN (12:59)
[2023-07-15] MEDS ORDERED: traMADol HCL 50 MG TABLET PO PRN (12:59)
[2023-07-15] MEDS ORDERED: MoRPHine SULFATE 2 MG/ML CARP IV PRN (12:59)
[2023-07-15] MEDS: traMADol HCL 50 MG TABLET PO PRN ×2 (13:22→20:21)
--- NOTE | 2023-07-15 13:40 | Hospitalist Consultation ---
Date of Consultation July 15, 2023 Assessment & Plan (1) Left groin pain: 83 y/o male with a PMHx of HLD, PIYUSH on CPAP, and BPH here for a left inguinal hernia repair now POD0 and recovering well. Patient HDS with no acute concerns. 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 Khalil, no acute concerns #Hyperlipidemia Patient on atorvastatin 80 mg. No recent lipids available in chart. Would recommend continuing home med. Outpatient follow up recommended #PIYUSH Uses CPAP at night. Continue while inpatient #BPH Patient on tamulosin 0.4 mg. No acute concerns Code status: full DVT ppx: SCDs FENGI: Heart Healthy diet Dispo: PCU, likely dispo home 07/16 (2) Incisional hernia: (3) Recurrent left inguinal hernia: (4) Aortic stenosis: (5) BPH with obstruction/lower urinary tract symptoms: (6) PIYUSH (obstructive sleep apnea): Supervising Physician Co-Signing Physician Notes Patient seen and examined, chart reviewed, case discussed with Racheal Dill MD and I agree with the assessment and plan as above except as otherwise noted Labs and images reviewed 83-year-old male with past medical history of hyperlipidemia, PIYUSH on CPAP, BPH who presented for elective left hernia repair. He underwent uncomplicated repair 07/15/2023 and is doing well with no postoperative symptoms. History of DC/CVA/DM 2/CHF. Agree with continuation of statin, CPAP nightly, and outpatient BPH treatment with tamsulosin. No signs of acute bleeding or hemodynamics instability. Patient is with 2 L transient O2 oxygen requirement, suspect postop/atelectasis. Recommend continuing incentive spirometry. If hypoxic a.m. 07/16, can follow-up with chest x-ray. Lungs are grossly clear on exam. Agree with assessment and management above Of note patient is [facility] PCP, [place] [facility] hospitalist consulted in ER. Will switch over to [facility] rounding service 07/16. History of Present Illness Reason for Consultation: post-op hernia repair, cardiac history Requesting Physician: Tatyana Sy Attending Physician: Jay Beltran M.D History of Present Illness 83 y/o male with a PMHx of HLD, PIYUSH on CPAP, and BPH here for a left inguinal hernia repair. Patient was experiencing left groin pain. Had previous repair done by Dr. Rivero. Now POD0 from repair with Dr. Mcdonough. Patient with burning abdominal pain following his procedure. Patient otherwise doing well - no nausea or vomiting, no f/c, no CP or SOB. He is sitting up and eating in bed. Patient with no previous history of DC or CVA. No history of diabetes. Only chronic conditions include HLD for which he is on Lipitor, PIYUSH controlled with CPAP, and BPH with tamsulosin for treatment. He does take trazodone at night to help with sleep. Otherwise he is in a good state of health. Allergies Allergy/AdvReac Type Severity Reaction Status Date / Time No Known Allergies Allergy Verified 07/15/23 08:57 Home Medications Medication Instructions Recorded Confirmed Type aspirin 81 mg chewable tablet 81 mg PO 2XWK 06/20/20 07/15/23 History atorvastatin 80 mg tablet 80 mg PO UD 06/20/20 07/15/23 History multivitamin (Daily Multi-Vitamin 1 tab PO QAM 06/20/20 07/15/23 History tablet) saw palmetto 500 mg capsule 500 mg PO BID 06/20/20 07/15/23 History turmeric 400 mg capsule 400 mg PO PM 03/26/21 07/15/23 History tamsulosin 0.4 mg capsule 0.4 mg PO DAILY #90 caps 09/02/22 07/15/23 Rx atorvastatin 40 mg tablet 40 mg PO UD 06/30/23 07/15/23 History elderberry fruit 200 mg capsule 200 mg PO BID 06/30/23 07/15/23 History magnesium 200 mg tablet 200 mg PO QAM 06/30/23 07/15/23 History trazodone 100 mg tablet 100 mg PO HS 06/30/23 07/15/23 History oxycodone-acetaminophen 5 mg-325 1 - 2 tab PO .q4-6h PRN pain, for 07/15/23 Rx mg tablet (Percocet) initial therapy, max 6 tabs per day #15 tabs polyethylene glycol 3350 17 17 g PO DAILY 07/15/23 07/15/23 History gram/dose oral powder (Miralax) Patient History Medical History (Updated 07/15/23 @ 14:00 by Racheal Dill MD) Aortic stenosis BPH with obstruction/lower urinary tract symptoms Diastolic dysfunction Grade 1 (echo 11/2022) History of COVID-19 Early 07/2022- fatigue, resolved Hyperlipidemia LVH (left ventricular hypertrophy) Mitral regurgitation Follows w/ Dr Khalil PIYUSH (obstructive sleep apnea) CPAP Recurrent bilateral inguinal hernia Surgical History (Updated 07/15/23 @ 11:58 by Ashli Barth, RN) H/O hernia repair (07/15/23) p Left Laparoscopic Repair of Recurrent Inguinal Hernia with Mesh, Laparoscopic Ventral Hernia Repair ( 2 cm)with Mesh(Left) - Jose maravilla DO s Open Repair of an Incisional Hernia ( 3 cm) (Not Applicable) - Jose Mcdonough DO H/O ventral hernia repair Laparoscopic Ventral Hernia Repair with Mesh History of colonoscopy 2021 History of hip replacement R/L Hx of oral surgery Broken tooth repair S/P left inguinal hernia repair 07-22-21 LIH repair 04-06-22 LIH repair S/P right inguinal hernia repair RIH repair Family History Father Cardiac disorder Brother Cardiac disorder Mother Hypertension Cancer Social History Smoking Status: Former smoker Cigarettes Per Day: quit "long time ago"; Second Hand Exposure: No; Do You Dip or Chew Tobacco: No; Tobacco Cessation Education Requested by Patient: No Hx Alcohol Use: Yes Alcohol type: beer Hx Substance Use: No Preferred Language: Yoruba Communication Ability: Effective Visual Impairment: No Limitations Orthotics Prosthetics Assistant Required: No Beliefs That Will Affect Care: None marital status: Current Living Situation: Spouse current occupational status: retired How many Children do You have: 4 Other Information That Helps Us Care for You: No Feels Safe at Home: Yes Safety Concerns: Feels Safe At This Time Assistive Devices: Cane, CPAP and Glasses Assistive Devices Comment: cane prn Review of Systems Review of Systems: See HPI Physical Exam Physical Exam: Gen: well appearing male in NAD, sitting up comfortably in bed eating lunch HEENT: AT NC EOMI PERRL MMM Resp: CTAB no wheezing good inspiratory effort good air movement, no increased work of breathing CV: RRR 2/6 systolic murmur clinically well perfused Abd: exam declined due to recent procedure MSK: no obvious deformities Skin: warm, well perfused, no rashes or bruising noted Psych: appropriate mood and affect Neuro: alert and oriented Results & Data Results & Data Vital Signs (Past 12 Hours) Vital Signs Temp Pulse Resp BP Pulse Ox O2 Del Method 07/15/23 12:30 64 17 131/67 97 Room Air 07/15/23 12:20 66 19 143/74 H 97 Room Air 07/15/23 12:10 36.8 C 67 16 128/69 97 Room Air 07/15/23 12:00 65 15 130/75 95 Room Air 07/15/23 11:50 66 18 125/70 98 Room Air 07/15/23 11:40 66 17 132/70 97 Room Air 07/15/23 11:30 69 16 130/69 96 Room Air 07/15/23 11:21 36.9 C 71 18 136/70 97 Room Air 07/15/23 08:45 36.6 C 68 18 126/76 96 Room Air Resident Activity Tracking Resident Involvement: Resident Care Provided Care Provided: Adult Hospital Medicine
[2023-07-15] MEDS ORDERED: traZODone HCL 100 MG TAB PO SCH (21:00)
[2023-07-16 05:03] LABS: Basophils # (auto) 0.02 K/uL (0-0.2); Basophils % (auto) 0.2 %; Eosinophils # (auto) 0.02 K/uL (0-0.50); Eosinophils % (auto) 0.2 %; Hematocrit (blood only) 37.6 % (42.0-52.0); Hemoglobin 12.5 g/dl (14.0-18.0); Immature Granulocytes # (auto) 0.05 K/uL (0.01-0.20); Immature Granulocytes % (auto) 0.4 %; Mean Corpuscular Hemoglobin 32.7 pg (25.0-34.0); Mean Corpuscular Hgb Conc 33.2 g/dL (32.0-36.0); Mean Corpuscular Volume 98.4 fL (80.0-100.0); Mean Platelet Volume 9.1 fL (9.4-12.4); Monocytes # (auto) 0.89 K/uL (0.11-0.59); Monocytes % (auto) 7.3 %; Neutrophils # (auto) 10.15 K/uL (1.40-6.50); Neutrophils % (auto) 82.9 %; Platelet Count 274 K/uL (130-400); RDW Coefficient of Variation 13.1 % (11.5-14.5); RDW Standard Deviation 47.7 fL (36.4-46.3); Red Blood Count 3.82 M/uL (4.70-6.10); White Blood Count 12.23 K/ul (4.8-10.8)
[2023-07-16 05:15] LABS: BUN Creatinine Ratio 15.1 (10-20); Calcium 8.8 mg/dl (8.6-10.3); Creatinine Clr Calc Pharmacy 78.8 ml/min; Est GFR (African American) 88.9 ml/min; Est GFR (Non-African American) 76.7 ml/min; Potassium 4.2 mmol/L (3.5-5.1)
[2023-07-16] MEDS ORDERED: TAMSULOSIN HCL 0.4 MG CAP PO SCH (09:00)
--- NOTE | 2023-07-16 09:31 | Surgery Progress Note ---
Date of Service July 16, 2023 Assessment & Plan (1) H/O hernia repair: Plan: Doing well. Okay for discharge. Instructions reviewed. Follow-up in 1 to 2 weeks. Admission and Anticipated Discharge Date Admission Date: July 15, 2023 Subjective Patient seen. Having expected soreness but otherwise doing okay. He would like to go home today. Tolerating diet. Physical Exam Physical Exam: Alert. No acute distress Abdomen is soft with expected tenderness. His incisions all look good and the repairs feels solid Results & Data Vital Signs (Past 12 Hours) Vital Signs Temp Pulse Pulse Resp BP BP Pulse Ox 07/16/23 07:37 36.6 C 71 20 111/72 94 07/16/23 06:58 36.6 C 64 16 111/70 95 07/16/23 06:00 70 126/70 07/16/23 04:00 36.6 C 63 15 128/72 97 07/16/23 02:50 60 17 95 07/16/23 02:40 59 L 17 92 07/16/23 02:30 58 L 15 94 07/16/23 02:20 61 15 93 07/16/23 02:10 70 16 98 07/16/23 02:10 104/71 07/16/23 02:00 63 20 94 07/16/23 01:50 65 17 94 07/16/23 01:40 80 17 94 07/16/23 01:32 88 18 95 07/16/23 01:32 117/78 07/16/23 01:30 78 10 L 93 07/16/23 01:20 62 13 91 07/16/23 01:15 63 14 94 07/16/23 01:15 109/65 07/16/23 01:10 63 13 90 07/16/23 01:00 61 14 94 07/16/23 01:00 102/66 07/16/23 00:50 64 14 93 07/16/23 00:40 64 15 94 07/16/23 00:30 68 23 94 07/16/23 00:20 68 14 91 07/16/23 00:15 69 21 93 07/16/23 00:15 116/70 07/16/23 00:10 73 16 90 07/16/23 00:00 69 20 94 07/15/23 23:50 69 15 92 07/15/23 23:45 104/71 08/17/23 23:45 72 23 94 07/15/23 23:40 71 15 88 L 07/15/23 23:30 69 20 92 07/15/23 23:30 103/68 07/15/23 23:20 72 16 94 07/15/23 23:10 67 14 93 07/15/23 23:00 68 14 92 07/15/23 22:50 72 14 92 07/15/23 22:45 98/64 L 07/15/23 22:45 72 18 93 07/15/23 22:40 70 15 92 07/15/23 22:30 77 16 93 07/15/23 22:30 109/69 07/15/23 22:20 71 15 91 07/15/23 22:15 105/66 07/15/23 22:15 71 20 92 07/15/23 22:10 75 22 93 07/15/23 22:00 72 21 91 07/15/23 22:00 108/70 07/15/23 21:50 81 15 93 07/15/23 21:45 113/74 07/15/23 21:45 84 11 L 94 07/15/23 21:40 73 20 93 07/15/23 23:17 69 O2 Del Method 07/16/23 07:37 Room Air 07/16/23 06:58 Room Air 07/16/23 06:00 07/16/23 04:00 Room Air, CPAP 07/16/23 02:50 07/16/23 02:40 07/16/23 02:30 07/16/23 02:20 07/16/23 02:10 07/16/23 02:10 07/16/23 02:00 07/16/23 01:50 07/16/23 01:40 07/16/23 01:32 07/16/23 01:32 07/16/23 01:30 07/16/23 01:20 07/16/23 01:15 07/16/23 01:15 07/16/23 01:10 07/16/23 01:00 07/16/23 01:00 07/16/23 00:50 07/16/23 00:40 07/16/23 00:30 07/16/23 00:20 07/16/23 00:15 07/16/23 00:15 07/16/23 00:10 07/16/23 00:00 07/15/23 23:50 07/15/23 23:45 07/15/23 23:45 07/15/23 23:40 07/15/23 23:30 07/15/23 23:30 07/15/23 23:20 07/15/23 23:10 07/15/23 23:00 07/15/23 22:50 07/15/23 22:45 07/15/23 22:45 07/15/23 22:40 07/15/23 22:30 07/15/23 22:30 07/15/23 22:20 07/15/23 22:15 07/15/23 22:15 07/15/23 22:10 07/15/23 22:00 07/15/23 22:00 07/15/23 21:50 07/15/23 21:45 07/15/23 21:45 07/15/23 21:40 07/15/23 23:17 PG Care Time/CCT Total # of Minutes Spent Total Time Spent with Patient: Total time spent is greater than 50% in coordination of care (as documented) at patient's floor/unit and/or counseling patient: Coding Level of Care Code 55098 Post Operative Follow-Up Diagnoses H/O hernia repair Z98.890; Z87.19
--- NOTE | 2023-07-16 12:19 | Hospitalist Progress Note ---
Date of Service July 16, 2023 Assessment & Plan (1) H/O hernia repair: Plan 83-year-old male with past medical history of hyperlipidemia, PIYUSH on CPAP, BPH who presented for elective left hernia repair. Doing well on POD day 1. Pain well controlled. Aortic Stenosis #Aortic Root Dilatation Follows up with cardiology; no complaint of chest pain. Hyperlipidemia Patient on atorvastatin 80 mg. Continue as outpatient PIYUSH Uses CPAP at night. Continue while inpatient BPH Patient on tamulosin 0.4 mg. No acute concerns Discussed with patient regarding proper use of pain medication. Recommended to use Tylenol and limit dose to 2 g/day. Patient to follow-up with primary care doctors as scheduled. Please note the above document was generated using voice recognition software. It may contain grammatical, syntax or spelling errors. Any formal questions or concerns about the content, text or information contained within the body of this dictation should be directly addressed to the provider for clarification Admission and Anticipated Discharge Date Admission Date: July 15, 2023 Subjective Patient seen and examined at bedside. He is sitting up on the chair comfortably; denies any abdominal pain or discomfort. No fever, chills, chest pain or abdominal pain. Review of Systems Review of Systems: All systems reviewed & are unremarkable except as noted in Subjective Physical Exam Physical Exam: Constitutional: WD/WN, vitals as above, NAD, sitting up in bed, pleasant, conversing easily Respiratory: Bilateral vesicular breath sound. Cardiovascular: RRR, no murmur, no edema Vessels: no JVD or carotid bruit Chest: normal inspection of chest Abdomen: Dressing clean dry and intact. Musculoskeletal: no cyanosis or clubbing, extremities motor strength 5/5 Skin: no rashes, warm and dry normal turgor Neurologic: PERRL, EOMI, accommodation nl, no face palsy, no dysarthria CN's II- XI intact bilaterally and moves all extremities Psychiatric: A+Ox3, euthymic affect Results & Data Results & Data Vital Signs (Past 12 Hours) Vital Signs Temp Pulse Pulse Resp BP BP Pulse Ox 07/16/23 11:52 36.9 C 70 18 105/62 94 07/16/23 10:41 36.6 C 67 20 102/66 91 07/16/23 07:37 36.6 C 71 20 111/72 94 07/16/23 06:58 36.6 C 64 16 111/70 95 07/16/23 06:00 70 126/70 07/16/23 04:00 36.6 C 63 15 128/72 97 07/16/23 02:50 60 17 95 07/16/23 02:40 59 L 17 92 07/16/23 02:30 58 L 15 94 07/16/23 02:20 61 15 93 07/16/23 02:10 70 16 98 07/16/23 02:10 104/71 07/16/23 02:00 63 20 94 07/16/23 01:50 65 17 94 07/16/23 01:40 80 17 94 07/16/23 01:32 88 18 95 07/16/23 01:32 117/78 07/16/23 01:30 78 10 L 93 07/16/23 01:20 62 13 91 07/16/23 01:15 63 14 94 07/16/23 01:15 109/65 07/16/23 01:10 63 13 90 07/16/23 01:00 61 14 94 07/16/23 01:00 102/66 07/16/23 00:50 64 14 93 07/16/23 00:40 64 15 94 07/16/23 00:30 68 23 94 07/16/23 00:20 68 14 91 O2 Del Method 07/16/23 11:52 07/16/23 10:41 Room Air 07/16/23 07:37 Room Air 07/16/23 06:58 Room Air 07/16/23 06:00 07/16/23 04:00 Room Air, CPAP 07/16/23 02:50 07/16/23 02:40 07/16/23 02:30 07/16/23 02:20 07/16/23 02:10 07/16/23 02:10 07/16/23 02:00 07/16/23 01:50 07/16/23 01:40 07/16/23 01:32 07/16/23 01:32 07/16/23 01:30 07/16/23 01:20 07/16/23 01:15 07/16/23 01:15 07/16/23 01:10 07/16/23 01:00 07/16/23 01:00 07/16/23 00:50 07/16/23 00:40 07/16/23 00:30 07/16/23 00:20 Laboratory Results Laboratory Results WBC 12.23 K/ul (4.8-10.8) H 07/16/23 04:10 RBC 3.82 M/uL (4.70-6.10) L 07/16/23 04:10 Hgb 12.5 g/dl (14.0-18.0) L 07/16/23 04:10 Hct 37.6 % (42.0-52.0) L 07/16/23 04:10 MCV 98.4 fL (80.0-100.0) 07/16/23 04:10 MCH 32.7 pg (25.0-34.0) 07/16/23 04:10 MCHC 33.2 g/dL (32.0-36.0) 07/16/23 04:10 RDW Std Deviation 47.7 fL (36.4-46.3) H 07/16/23 04:10 RDW Coeff of Mo 13.1 % (11.5-14.5) 07/16/23 04:10 Plt Count 274 K/uL (130-400) 07/16/23 04:10 MPV 9.1 fL (9.4-12.4) L 07/16/23 04:10 Immature Gran % (Auto) 0.4 % 07/16/23 04:10 Neut % (Auto) 82.9 % 07/16/23 04:10 Lymph % (Auto) 9.0 % 07/16/23 04:10 [place] % (Auto) 7.3 % 07/16/23 04:10 Eos % (Auto) 0.2 % 07/16/23 04:10 Baso % (Auto) 0.2 % 07/16/23 04:10 Neut # (Auto) 10.15 K/uL (1.40-6.50) H 07/16/23 04:10 Lymph # (Auto) 1.10 K/uL (1.2-3.4) L 07/16/23 04:10 [place] # (Auto) 0.89 K/uL (0.11-0.59) H 07/16/23 04:10 Eos # (Auto) 0.02 K/uL (0-0.50) 07/16/23 04:10 Baso # (Auto) 0.02 K/uL (0-0.2) 07/16/23 04:10 Immature Gran # (Auto) 0.05 K/uL (0.01-0.20) 07/16/23 04:10 Sodium 137 mmol/L (136-145) 07/16/23 04:10 Potassium 4.2 mmol/L (3.5-5.1) 07/16/23 04:10 Chloride 104 mmol/L (98-107) 07/16/23 04:10 Carbon Dioxide 28 mmol/L (21-32) 07/16/23 04:10 Anion Gap 5 (3-11) 07/16/23 04:10 BUN 14 mg/dl (6-23) 07/16/23 04:10 Creatinine 0.93 mg/dl (0.6-1.4) 07/16/23 04:10 Est Cr Clr Drug Dosing 78.8 ml/min 07/16/23 04:10 Est GFR ( Amer) 88.9 ml/min 07/16/23 04:10 Est GFR (Non-Af Amer) 76.7 ml/min 07/16/23 04:10 BUN/Creatinine Ratio 15.1 (10-20) 07/16/23 04:10 Glucose 108 mg/dl (70-99(Fasting)) H 07/16/23 04:10 Calcium 8.8 mg/dl (8.6-10.3) 07/16/23 04:10 Nasal Screen MRSA (PCR) Negative (Negative) 07/15/23 13:00
[2023-07-16] MEDS ORDERED: IBUPROFEN 800 MG TAB PO STA (12:30)
[2023-07-16] MEDS ORDERED: IBUPROFEN 200 MG TAB PO ONE (12:33)
[2023-07-16] MEDS ORDERED: ATORVASTATIN 40 MG TAB PO SCH (21:00)
--- NOTE | 2023-07-20 12:46 | Discharge Summary ---
Date of Service July 16, 2023 Admission HPI Per Admitting Provider Vinicio is here for repair of his recurrent left inguinal hernia previously repaired by Dr. Rivero. He also has a small supraumbilical incisional hernia from a prior laparoscopy. There has been no changes to his health history since I seen him last in the office. Principal Diagnosis Ventral , Inguinal, Incisional hernia repair Discharge Exam alert no acute distress. Abdomen is soft with expected tenderness. His incisions all look good and the repairs feels solid (per surgical progress note on 07/16/23) Discharge Data Allergies Allergy/AdvReac Type Severity Reaction Status Date / Time No Known Allergies Allergy Verified 07/15/23 08:57 Consultations 07/15/23 12:59 Consult Hospitalist Routine Procedures Performed Operation Date: 07/15/23 09:55 Actual Procedures p Left Laparoscopic Repair of Recurrent Inguinal Hernia with Mesh, Laparoscopic Ventral Hernia Repair with Mesh(Left) - Jose Mcdonough DO s Open Repair of an Incisional Hernia (Not Applicable) - Jose Mcdonough DO Hospital Course (1) H/O hernia repair: You came to the hospital 07/15/23 for an elective laparoscopic recurrent inguinal hernia and ventral hernia repair. You also had an open incisional hernia repair. You were admitted to the hospital post procedure for observation due to your comorbidities. You were discharged the following day in stable condition and told to follow up in the office with the surgeon. Total Time Total Time Spent Total Time Spent (In Minutes): 15 Discharge Plan Discharge Items Patient Disposition: Home - Self-Care Reason For Visit: Recurrent Bilateral Inguinal Hernia, Incisional He Discharge Diagnosis: left inguinal hernia repair incisional hernia repair Activity: Per Instructions section Lifting: No more than 10 pounds Bathing Comment: may shower starting 07/16/23; no soaking in tubs/pools x 2 weeks Exercise/Sports: Wait until after follow-up appointment Driving/Machine Use: wait at least 1 week; no driving while taking narcotics for pain Non-emergency contact: Surgeon Call non-emergency contact if: you have any medication questions, your symptoms worsen, your pain is unusual for you, you have a fever, your temperature is above 101.5, your wound has increased redness, your wound has increased drainage and your wound pain has increased Follow-up/Referrals: Jose Mcdonough DO [Surgeon] - 07/30/23 9:30 am (Follow up scheduled on 07/30/2023 @ 9:30am) Anahi Curry, DO [Primary Care Provider] - Diet: Regular Addtl Attending Provider Instructions: You may ice your groin on and off alternating every 20 minutes as needed to help with pain and swelling over the next few days. You have skin glue over your incisions called dermabond. you may shower with this on. It will tend to dissolve and fall off within a couple weeks. Do not pick at the skin glue Pending Studies at Discharge: No Stand-Alone Forms: My [facility] Medications and DC Order Prescriptions: New oxycodone-acetaminophen [Percocet] 5-325 mg tablet 1 - 2 tab PO .q4-6h PRN (Reason: pain, for initial therapy, max 6 tabs per day) Qty: 15 0RF Continued tamsulosin 0.4 mg capsule 0.4 mg PO DAILY Qty: 90 3RF Rx Instructions: 30 minutes after a meal -QAM aspirin 81 mg tablet,chewable 81 mg PO 2XWK Rx Instructions: NOT CURRENTLY TAKING atorvastatin 80 mg tablet 80 mg PO UD Rx Instructions: 3 days per week saw palmetto 500 mg capsule 500 mg PO BID multivitamin [Daily Multi-Vitamin] Tablet 1 tab PO QAM turmeric 400 mg Capsule 400 mg PO PM atorvastatin 40 mg Tablet 40 mg PO UD Rx Instructions: 3 days per week trazodone 100 mg tablet 100 mg PO HS magnesium 200 mg Tablet 200 mg PO QAM elderberry fruit 200 mg Capsule 200 mg PO BID polyethylene glycol 3350 [Miralax] 17 gram/dose Powder 17 g PO DAILY Discharge Orders: Discharge Order (Routine); Ordered 07/16/23 Ordered By: Jose Mcdonough Admission Data Admit Date/Time: 07/15/23 11:28 Attending Provider: Jose Mcdonough Admit Provider: Jose Mcdonough Primary Care Provider: Anahi Curry Other Providers: Jay Beltran Other Interventions: Discharge Summary Assessment (RN) Last Done: 07/16/23 11:52 Coding Level of Care Code 59594 IN/OBS DISCH 30 MIN/LESS Diagnoses H/O hernia repair Z98.890; Z87.19
== END 2023-07-16 13:06 | disposition home or self-care (01) ==
LOC: 1E 08:21 → ASU 08:21 → 2S 07-16 06:43
DX: I35.0 Nonrheumatic aortic (valve) stenosis; K43.2 Incisional hernia without obstruction or gangrene; G47.33 Obstructive sleep apnea (adult) (pediatric); Z86.16 Personal history of COVID-19; E78.5 Hyperlipidemia, unspecified; Z87.891 Personal history of nicotine dependence; Z79.899 Other long term (current) drug therapy; Z79.82 Long term (current) use of aspirin; K40.21 Bilateral inguinal hernia, without obstruction or gangrene, recurrent; N40.0 Benign prostatic hyperplasia without lower urinary tract symptoms; K43.9 Ventral hernia without obstruction or gangrene

== ENCOUNTER 2024-06-16 15:10 | Observation (INO) ==
--- NOTE | 2024-06-16 16:14 | Electrocardiogram Report ---
Test Reason : Blood Pressure : / mmHG Vent. Rate : 090 BPM Atrial Rate : 000 BPM P-R Int : 000 ms QRS Dur : 082 ms QT Int : 324 ms P-R-T Axes : 000 061 067 degrees QTc Int : 396 ms Atrial fibrillation Abnormal ECG When compared with ECG of 29-MAY-2024 08:27, Nonspecific T wave abnormality no longer evident in Inferior leads Nonspecific T wave abnormality no longer evident in Lateral leads Confirmed by Gabriel Khalil ([id number]) on 06/16/2024 4:14:07 PM Referred By: Confirmed By:Gabriel Khalil
--- NOTE | 2024-06-16 16:18 | Emergency Department Note ---
Impression & Plan Pulmonary embolism, Atrial fibrillation, Anemia ED Provider Note NAME: ELISSA DIAZ AGE: 84 SEX: M : 1940 ARRIVES VIA: Walk-In INFORMANT: Patient ED PROVIDER(S): Fernando Hahn DO CHIEF COMPLAINT: Pulmonary embolism HPI: Patient is an 84-year-old male with a past medical history of esophageal cancer stage IV, vocal cord paralysis who presents to the ER referred in by his PCP. He was having outpatient workup including a CT of the chest which showed pulmonary embolisms. He denies any new chest pain or shortness of breath. No belly pain, nausea, vomiting or diarrhea. No dysuria, urgency, or frequency. He denies any recent surgeries. No previous brain bleeds. No black or tarry stools. He notes his throat is very messed up and intermittently he will cough up/bring up some blood. He has not done this for about a week. No other exacerbating or remitting factors. Majority history is obtained from as patient has difficulty talking. ADDITIONAL HISTORY OBTAINED: Per HPI Chronic Medical/Social Conditions Affecting Care: Per HPI PAST MEDICAL HISTORY:See Below PAST SURGICAL HISTORY:See Below FAMILY HISTORY:See Below SOCIAL HISTORY:See Below HOME MEDICATIONS:See Below ALLERGIES:See Below VITALS:See Below PHYSICAL EXAMINATION: GENERAL: Sitting up in bed, alert, well appearing, well nourished, no distress, non-toxic EYE EXAM: normal conjunctiva. PERRL and EOM's grossly intact. OROPHARYNX: no exudate, no erythema, lips, buccal mucosa, and tongue normal and mucous membranes are moist NECK: supple, no nuchal rigidity, no adenopathy, non-tender LUNGS: Clear to auscultation. Normal chest wall mechanics HEART: no murmurs, S1 normal and S2 normal ABDOMEN: abdomen soft, non-tender, normo-active bowel sounds, no masses, no rebound or guarding. BACK: Back is symmetrical on inspection and there is no deformity, no midline tenderness, no CVA tenderness. SKIN: no rashes and no bruising UPPER EXTREMITIES: upper extremities are grossly normal. LOWER EXTREMITIES: No pitting edema. NEURO EXAM: Normal sensorium, cranial nerves II-XII intact, able to slightly whisper, no weakness of arms, no weakness of legs. MEDICAL DECISION MAKING: Patient is an 84-year-old male who presents ER for above-stated complaint. IV was established blood work was obtained. External records were reviewed which shows segmental and subsegmental PEs with a pleural effusion. This was obtained from [facility] from the CTs performed earlier today after discussion with their care managers who are both to obtain these records. Labs showed no significant leukocytosis. Mild anemia 10. INR unremarkable. BMP slightly elevated glucose in 150s. Troponin negative. EKG shows new A-fib with RVR. Patient was given heparin and started on the low-dose due to intermittently coughing up blood. Patient denies all other complaints at this time. Discussed the case with the hospitalist for further evaluation management treatment. Consults/Care Managements Discussions: Per [facility] Triage Nursing notes reviewed. Limited review of prior medical records performed Vital Signs: reviewed and remarkable for no significant abnormalities Differential diagnosis: Differential diagnoses includes but is not limited to pneumonia, bronchitis, COPD/Asthma exacerbation, pneumothorax, pulmonary embolism, congestive heart failure, acute coronary syndrome ER treatment provided: See below Diagnostics interpreted by me include EKG and cardiac monitoring as listed below: -Cardiac Monitoring: An order was placed for continuous cardiac monitoring. The monitor shows a rate of 100 with atrial flutter rhythm. -ECG: A-fib rate of 90 Normal axis No PVCs QTc 396 -Laboratory studies:Interpreted by me as stated above in MDM and shown below. Imaging studies: Xrays: As interpreted by me:none CTs show: none Critical Care: I have personally spent 32 minutes of critical care time in the direct management of this patient. This includes bedside care, interpretation of diagnostic studies, and testing, discussion with consultants, patient, and family members, and other required patient management activities. This 32 minutes is in excess of all separately billable procedures. Past Med/Surg History Problem List (Updated 06/16/24 @ 22:17 by Fernando Hahn DO) Anemia (Acute) Hyperlipidemia PIYUSH (obstructive sleep apnea) CPAP Atrial fibrillation (Acute) Pulmonary embolism (Acute) Esophageal cancer (03/2024) Recent dx EGD 03/2024: Large, ulcerating mass with bleeding and stigmata of recent bleeding found in the upper third of the esophagus and in the middle third of the esophagus. 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 port placed 05/11/24, chemo and XRT Dysphonia Presbylarynx Vocal fold paralysis, left Hoarseness of voice Medical History Dehydration pt. unable to swallow, was getting IV Fluid during PAT assessment, was to see PCP today but states he cancelled and is not planning to see PCP prior to surgery on 05/29. last seen ~ 3 months Anemia Dysphagia currently unable to take meds Right-sided chest pain Daily, fairly constant right sided chest tenderness since Mid January 2024. Noted at rest/unchanged with activity. General surgery visit 04/04/24, "Tenderness this is more lateral and on his chest wall along his fifth and sixth rib line.." Symptoms improved with Tylenol. Hypogonadism Low testosterone Nocturia Aortic root dilation Echo 01/2024: Mild aortic root dilatation (4.0cm in diameter) PIYUSH (obstructive sleep apnea) CPAP Diastolic dysfunction follows with Dr. Khalil Aortic stenosis Echo 01/2024: Mild aortic stenosis (CHERIE 2.3 cm2, MG 13.4mmhg) Mitral valve regurgitation Echo 01/2024: Mild MR LVH (left ventricular hypertrophy) BPH (benign prostatic hyperplasia) Gallstones current Ascending aorta dilatation Echo 01/2024: Mildly dilated ascending aorta (3.9 cm in diameter) History of COVID-19 (07/2022) Early 07/2022- fatigue, resolved Hyperlipidemia Surgical History History of surgery (05/29/24) Esophagogastroduodenoscopy, with open Gastrostomy Tube placement - Jose Mcdonough DO History of insertion of central venous access port (05/11/24) left subclavian H/O hernia repair Left Laparoscopic Repair of Recurrent Inguinal Hernia with Mesh, Laparoscopic Ventral Hernia Repair (2 cm) with Mesh, Open Repair of an Incisional Hernia H/O ventral hernia repair Laparoscopic Ventral Hernia Repair with Mesh History of esophagogastroduodenoscopy (EGD) (2023) Hx of ventral hernia repair S/P right inguinal hernia repair (03/2021) RIH repair S/P left inguinal hernia repair (03/2022) 06/2021 LIH repair 03/2022 LIH repair Hx of oral surgery Broken tooth repair History of colonoscopy (2021) History of hip replacement R/L Family History Father , 84yo Myocardial infarction Brother Myocardial infarction Mother , in her 80s Hypertension Multiple myeloma Brother , at No problems noted. Brother , 2yo Acute meningitis Son No problems noted. Son No problems noted. Daughter No problems noted. Daughter No problems noted. 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 How many Children do You have: 4 Other Information That Helps Us Care for You: No Feels Safe at Home: Yes Safety Concerns: Feels Safe At This Time Diet: regular caffeine: Yes (1 cup/day) during the past year weight has: decreased > 10 lbs Assistive Devices: Cane, CPAP and Glasses Allergies Allergies Allergy/AdvReac Type Severity Reaction Status Date / Time No Known Allergies Allergy Verified 06/12/24 11:49 Home Meds Home Medications Medication Instructions Recorded Confirmed ferric carboxymaltose 50 mg 750 mg IV Q7D 06/12/24 06/16/24 iron/mL intravenous solution Results & Data (ED) Vital Signs Vital Signs - 24 hr 06/16/24 15:14 06/16/24 15:44 06/16/24 15:51 Temperature 36.9 C Temperature Source Temporal Artery Scan Pulse Rate 80 101 H Pulse Rate [Apical] 96 H Pulse Rhythm [Apical] Regular Pulse Strength [Apical] Normal Respiratory Rate 16 28 H Respiratory Effort / Characteristics Non-Labored Spontaneous Non-Labored Respiratory Depth Normal Normal Respiratory Pattern Regular Blood Pressure 109/64 Blood Pressure [Right Arm] 100/64 Blood Pressure Mean 79 Blood Pressure Mean [Right Arm] 76 Blood Pressure Position [Right Arm] Sitting Pulse Oximetry 96 98 Oxygen Delivery Method Room Air Room Air Sepsis Recent Fever Within 48 Hours No Sepsis New/Unexplained Change in Mental Status No Sepsis Action Taken by Nursing No Action Required 06/16/24 15:51 Temperature Temperature Source Pulse Rate 96 H Pulse Rate [Apical] Pulse Rhythm [Apical] Pulse Strength [Apical] Respiratory Rate 21 Respiratory Effort / Characteristics Respiratory Depth Respiratory Pattern Blood Pressure Blood Pressure [Right Arm] Blood Pressure Mean Blood Pressure Mean [Right Arm] Blood Pressure Position [Right Arm] Pulse Oximetry 97 Oxygen Delivery Method Room Air Sepsis Recent Fever Within 48 Hours Sepsis New/Unexplained Change in Mental Status Sepsis Action Taken by Nursing Laboratory Data 06/16/24 15:55 06/16/24 21:29 Lab Results 06/16/24 Range/Units 15:55 WBC 9.48 (4.8-10.8) K/ul RBC 3.41 L (4.70-6.10) M/uL Hgb 10.4 L (14.0-18.0) g/dl Hct 32.9 L (42.0-52.0) % MCV 96.5 (80.0-100.0) fL MCH 30.5 (25.0-34.0) pg MCHC 31.6 L (32.0-36.0) g/dL RDW Std Deviation 48.5 H (36.4-46.3) fL RDW Coeff of Mo 13.8 (11.5-14.5) % Plt Count 431 H (130-400) K/uL MPV 8.8 L (9.4-12.4) fL Immature Gran % (Auto) 0.4 % Neut % (Auto) 88.3 % Lymph % (Auto) 2.5 % [place] % (Auto) 7.9 % Eos % (Auto) 0.6 % Baso % (Auto) 0.3 % Neut # (Auto) 8.36 H (1.40-6.50) K/uL Lymph # (Auto) 0.24 L (1.20-3.40) K/uL [place] # (Auto) 0.75 H (0.11-0.59) K/uL Eos # (Auto) 0.06 (0.00-0.50) K/uL Baso # (Auto) 0.03 (0.00-0.20) K/uL Immature Gran # (Auto) 0.04 (0.01-0.20) K/uL PT 10.9 (9.0-12.0) Seconds INR 1.0 (0.9-1.1) APTT 27 (21-31) Seconds PTT Ratio 1.0 Sodium 137 (136-145) mmol/L Potassium 4.1 (3.5-5.1) mmol/L Chloride 102 (98-107) mmol/L Carbon Dioxide 29 (21-32) mmol/L Anion Gap 6 (3-11) BUN 22 (6-23) mg/dl Creatinine 0.55 L (0.6-1.4) mg/dl Est Cr Clr Drug Dosing 120.4 ml/min Est GFR ( Amer) 112.5 ml/min Est GFR (Non-Af Amer) 97.0 ml/min BUN/Creatinine Ratio 40.0 H (10-20) Glucose 98 (70-99(Fasting)) mg/dl Calcium 8.8 (8.6-10.3) mg/dl Magnesium 2.2 (1.7-2.4) mg/dl Total Bilirubin 0.3 (0.2-1.0) mg/dl AST 22 (13-39) U/L ALT 11 (7-52) U/L Alkaline Phosphatase 100 (34-104) U/L Troponin I High Sens 12.7 (0-20) pg/ml Total Protein 6.4 (6.0-8.3) gm/dl Albumin 3.3 L (3.4-5.0) gm/dl Globulin 3.1 (2.5-4.0) gm/dl Albumin/Globulin Ratio 1.1 (0.9-2) Lipase 37 (11-82) U/L TSH 2.783 (0.300-4.500) uIu/ml Administered Medications Heparin Sodium/Dextrose (Heparin Sodium/Dextrose) 25,000 units in 500 mls @ 31 mls/hr IV .Q16H8M [facility]; Protocol Stop: 07/16/24 17:59 Last Admin: 06/16/24 19:00 Dose: 1,550 units/hr, 31 mls/hr Documented By: JAYDON Co-signed By: MARCEL Scopolamine (Scopolamine 1 Mg/72 Hr Tdsy Patch) 1 patch TD Q72H [facility] Stop: 07/16/24 17:59 Last Admin: 06/16/24 21:34 Dose: 1 patch Documented By: JAYDON Discontinued Medications Heparin Sodium/Dextrose (Heparin Iv Adult Wt-Based Standard *No* Initial Bolus Protocol) 1 each IV ONE STA; Protocol Stop: 06/16/24 17:35 Last Admin: 06/16/24 19:29 Dose: 1 each Documented By: JAYDON Heparin Sodium/Dextrose (Heparin Sodium/Dextrose) 25,000 units in 500 mls @ 20 mls/hr IV .Q24H PABLO; Protocol Stop: 07/16/24 16:44 Last Admin: 06/16/24 17:51 Dose: Not Given Documented By: [facility] Discharge Plan Visit Data Chief Complaint: Referred by Doctor Stated Complaint: BLOOD CLOT IN CHEST ED Provider: Fernando Hahn Discharge Problem: Pulmonary embolism, Atrial fibrillation, Anemia Patient Disposition: Admitted As Inpatient Discharge Instructions Interventions: ED Discharge Assessment Last Done: 06/16/24 19:00 Discharge Problem: Pulmonary embolism Qualifiers: Pulmonary embolism type: unspecified Chronicity: acute Acute cor pulmonale presence: unspecified Qualified Code(s): I26.99 - Other pulmonary embolism without acute cor pulmonale Atrial fibrillation Qualifiers: Atrial fibrillation type: unspecified Qualified Code(s): I48.91 - Unspecified atrial fibrillation Anemia Qualifiers: Anemia type: unspecified type Qualified Code(s): D64.9 - Anemia, unspecified
[2024-06-16] MEDS ORDERED: Heparin IV Adult Wt-Based Low-Dose *NO* INITIAL Bolus Protocol IV STA (16:19)
[2024-06-16 16:30] LABS: Basophils # (auto) 0.03 K/uL (0.00-0.20); Basophils % (auto) 0.3 %; Eosinophils # (auto) 0.06 K/uL (0.00-0.50); Eosinophils % (auto) 0.6 %; Hematocrit (blood only) 32.9 % (42.0-52.0); Hemoglobin 10.4 g/dl (14.0-18.0); Immature Granulocytes # (auto) 0.04 K/uL (0.01-0.20); Immature Granulocytes % (auto) 0.4 %; Lymphocytes # (auto) 0.24 K/uL (1.20-3.40); Lymphocytes % (auto) 2.5 %; Mean Corpuscular Hemoglobin 30.5 pg (25.0-34.0); Mean Corpuscular Hgb Conc 31.6 g/dL (32.0-36.0); Mean Corpuscular Volume 96.5 fL (80.0-100.0); Mean Platelet Volume 8.8 fL (9.4-12.4); Monocytes # (auto) 0.75 K/uL (0.11-0.59); Monocytes % (auto) 7.9 %; Neutrophils # (auto) 8.36 K/uL (1.40-6.50); Neutrophils % (auto) 88.3 %; Platelet Count 431 K/uL (130-400); RDW Coefficient of Variation 13.8 % (11.5-14.5); RDW Standard Deviation 48.5 fL (36.4-46.3); Red Blood Count 3.41 M/uL (4.70-6.10); White Blood Count 9.48 K/ul (4.8-10.8)
[2024-06-16 16:56] LABS: Albumin Globulin Ratio 1.1 (0.9-2); Albumin Level 3.3 gm/dl (3.4-5.0); Bilirubin,Total 0.3 mg/dl (0.2-1.0); Calcium 8.8 mg/dl (8.6-10.3); Creatinine Clr Calc Pharmacy 120.4 ml/min; Est GFR (African American) 112.5 ml/min; Globulin 3.1 gm/dl (2.5-4.0); Potassium 4.1 mmol/L (3.5-5.1); Total Protein 6.4 gm/dl (6.0-8.3)
--- NOTE | 2024-06-16 16:58 | History & Physical Report ---
<Statement entered by Too Quiros DO - 06/17/24 10:52> I have seen and examined the patient and have discussed the case with the provider above. I have reviewed the advanced practitioner's documentation, and I agree with, and take responsibility for that plan of care. Patient seen and evaluated while still in the ED. Patient high risk for thromboembolic disease in the setting of esophageal cancer. Can continue tube feeds as at home. 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 Denies CP, SOB, extremity edema. +dysphagia and coughing and spitting out secretions. Reported Intermittent red blood tinged secretions up History obtained from patient, patient's and daughter at bedside as well as outpatient chart review. Patient with metastatic esophageal cancer and currently has dysphasia and dysphagia and is unable to swallow his secretions. Last noted this morning. None noted during ER course. Reviewed 06/16/24 CTA Chest: Impression: 1. Small burden right lower segmental/subsegmental pulmonary emboli. No evidence of right heart strain. 2. Esophageal cancer with pulmonary metastases and mediastinal adenopathy. 3. Small right pleural effusion In ER afebrile, no hypoxia, no tachypnea, HR high 90's and in atrial fibrillation. Negative troponin. TSH: WNL, no significant electrolyte abnormality. Hgb: 10.4 (was 10.5 on 06/07/24) Spoke to hematology/oncology Dr De La Torre. Recommend standard dose heparin drip and closely monitor for any bleeding per 24 hours. If patient does well plan would be to start Eliquis 10 mg twice daily for a week followed by 5 mg twice daily Heparin IV CBC in a.m. (2) Atrial fibrillation: Plan: Patient noted to be in atrial fibrillation in ER. Currently heart rates in high 90s, BP stable. Per chart review EKG 05/29/2024 atrial fibrillation rate controlled. Prior EKGs reviewed and patient was in sinus rhythm Monitor on telemetry Lopressor IV as needed tachycardia May need to consider adding oral beta-francheska Currently on IV heparin with current PE Echo Cardiology consult 02/21/2024 echo: EF: 60-65%, mild aortic root dilation (4.0 cm in diameter). Mild dilated ascending aorta (3.9 cm diameter). Mild aortic stenosis (3) Esophageal cancer: (4) Dysphonia: (5) Vocal fold paralysis, left: Plan: Metastatic esophageal cancer. Dysphagia. S/P palliative radiation. Currently on palliative chemo and Keytruda last dose chemo yesterday per discussion with Dr De La Torre Following with oncology Dr. De La Torre Has upcoming planned procedure for vocal cords Has feeding tube in place and receiving enteral nutrition and nothing by mouth currently secondary to symptoms Continue enteral nutrition Nutrition consult Scopolamine patch to assist with secretions per Dr De La Torre (6) PIYUSH (obstructive sleep apnea): Plan: CPAP HS (7) Hyperlipidemia: Plan: Atorvastatin on hold as not taking po currently DVT Prophylaxis On IV Heparin for PE present upon arrival Admit med tele DNR/DNI as per discussion with pt Follows with Dr Anahi Curry for routine care Pt was seen and care coordinated with Dr Quiros. See addendum I spent a total of 83 minutes reviewing notes, outpatient records, labs, medication, coordinating, documenting and providing care for this patient excluding time spent in the performance of separately billed services. History of Present Illness Chief Complaint: Abnormal CTA chest Primary Care Provider: Anahi Curry DO Patient is 84 year old male with PMH metastatic esophageal cancer s/p radiation and on chemo, dyslipidemia, PIYUSH presented to ER for abnormal CTA chest. History obtained from patient, patient's and daughter at bedside as well as outpatient chart review. Patient with metastatic esophageal cancer and currently has dysphasia and dysphagia and is unable to swallow his secretions. He has feeding tube in place and receiving enteral nutrition and free water four times a day. He is status post palliative radiation x 10 treatments finished on 06/06/2024 per patient's daughter. Seen at PCP's office yesterday for pre-op evaluation for upcoming vocal cord surgery. EKG in office was noted to have atrial fibrillation, rate controlled. It was recommended patient have CTA chest to rule out PE however patient had scheduled treatments at cancer center so patient and her family decided to have CTA done today. Patient reports has intermittently been coughing and spitting up clear "spit" that sometimes has red blood tinge. States last time noted to cough up blood was this morning. He denies any shortness of breath, chest pain, extremity pain redness or edema. Denies history prior PE/DVT. Following with oncology, Dr De La Torre. Yesterday had chemo and IV iron transfusion. Patient's daughter states in May during procedure he was noted to be in atrial fibrillation. Denies fever/chills, diaphoresis, N/V/D/C, TORREZ, dizziness, syncope, vision changes, neck pain, CP, SOB, palpitations, otalgia, rhinorrhea, abdominal pain, paresthesias, extremity weakness, extremity edema, rashes, urinary symptoms, falls. Reviewed 06/16/24 CTA Chest: Impression: 1. Small burden right lower segmental/subsegmental pulmonary emboli. No evidence of right heart strain. 2. Esophageal cancer with pulmonary metastases and mediastinal adenopathy. 3. Small right pleural effusion Allergies Allergy/AdvReac Type Severity Reaction Status Date / Time No Known Allergies Allergy Verified 06/12/24 11:49 Home Medications Medication Instructions Recorded Confirmed Type ferric carboxymaltose 50 mg 750 mg IV Q7D 06/12/24 06/16/24 History iron/mL intravenous solution Past Med/Surg History Problem List (Updated 06/16/24 @ 20:22 by Priti Howard PA-C) Hyperlipidemia PIYUSH (obstructive sleep apnea) CPAP Atrial fibrillation Pulmonary embolism Esophageal cancer (03/2024) Recent dx EGD 03/2024: Large, ulcerating mass with bleeding and stigmata of recent bleeding found in the upper third of the esophagus and in the middle third of the esophagus. 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 port placed 05/11/24, chemo and XRT Dysphonia Presbylarynx Vocal fold paralysis, left Hoarseness of voice Medical History Dehydration pt. unable to swallow, was getting IV Fluid during PAT assessment, was to see PCP today but states he cancelled and is not planning to see PCP prior to surgery on 05/29. last seen ~ 3 months Anemia Dysphagia currently unable to take meds Right-sided chest pain Daily, fairly constant right sided chest tenderness since Mid January 2024. Noted at rest/unchanged with activity. General surgery visit 04/04/24, "Tenderness this is more lateral and on his chest wall along his fifth and sixth rib line.." Symptoms improved with Tylenol. Hypogonadism Low testosterone Nocturia Aortic root dilation Echo 01/2024: Mild aortic root dilatation (4.0cm in diameter) PIYUSH (obstructive sleep apnea) CPAP Diastolic dysfunction follows with Dr. Khalil Aortic stenosis Echo 01/2024: Mild aortic stenosis (CHERIE 2.3 cm2, MG 13.4mmhg) Mitral valve regurgitation Echo 01/2024: Mild MR LVH (left ventricular hypertrophy) BPH (benign prostatic hyperplasia) Gallstones current Ascending aorta dilatation Echo 01/2024: Mildly dilated ascending aorta (3.9 cm in diameter) History of COVID-19 (07/2022) Early 07/2022- fatigue, resolved Hyperlipidemia Surgical History History of surgery (05/29/24) Esophagogastroduodenoscopy, with open Gastrostomy Tube placement - Jose Mcdonough, History of insertion of central venous access port (05/11/24) left subclavian H/O hernia repair Left Laparoscopic Repair of Recurrent Inguinal Hernia with Mesh, Laparoscopic Ventral Hernia Repair (2 cm) with Mesh, Open Repair of an Incisional Hernia H/O ventral hernia repair Laparoscopic Ventral Hernia Repair with Mesh History of esophagogastroduodenoscopy (EGD) (2023) Hx of ventral hernia repair S/P right inguinal hernia repair (03/2021) RIH repair S/P left inguinal hernia repair (03/2022) 06/2021 LIH repair 03/2022 LIH repair Hx of oral surgery Broken tooth repair History of colonoscopy (2021) History of hip replacement R/L Family History Father , 84yo Myocardial infarction Brother Myocardial infarction Mother , in her 80s Hypertension Multiple myeloma Brother , at No problems noted. Brother , 2yo Acute meningitis Son No problems noted. Son No problems noted. Daughter No problems noted. Daughter No problems noted. 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 How many Children do You have: 4 Feels Safe at Home: Yes Diet: regular caffeine: Yes (1 cup/day) during the past year weight has: decreased > 10 lbs Assistive Devices: CPAP and Glasses Review of Systems 2 Review of Systems: All systems reviewed & are unremarkable except as noted in HPI & below Physical Exam Physical Exam: General: +spitting saliva in cup, otherwise no distress, chronic ill appearing elderly male Head: normocephalic, atraumatic Eyes: conjunctiva non-injected, anicteric ENT: normal inspection external ears, nose, mucous membranes moist, speaks in whisper Neck: supple, trachea midline Lungs: clear, no respiratory distress, no wheezing/rhonchi/rales CV: irregularly irregular, rate 98, no pretibial edema; chest wall with left upper port without overlying erythema Abd: +feeding tube without surrounding erythema, normal BS, soft, non-tender Ext: no cyanosis, no calf tenderness Neuro: A&O x 3, no focal deficits noted, normal affect Skin: warm, dry Results & Data Results & Data Vital Signs (Past 12 Hours) Vital Signs Temp Pulse Pulse Resp BP BP Pulse Ox 06/16/24 15:51 96 H 21 97 06/16/24 15:51 96 H 28 H 100/64 98 06/16/24 15:44 101 H 06/16/24 15:14 36.9 C 80 16 109/64 96 O2 Del Method 06/16/24 15:51 Room Air 06/16/24 15:51 Room Air 06/16/24 15:44 06/16/24 15:14 Room Air Laboratory Results Short CBC 06/16/24 Range/Units 15:55 WBC 9.48 (4.8-10.8) K/ul Hgb 10.4 L (14.0-18.0) g/dl Hct 32.9 L (42.0-52.0) % Plt Count 431 H (130-400) K/uL BMP 06/16/24 15:55 Sodium 137 Potassium 4.1 Chloride 102 Carbon Dioxide 29 BUN 22 Creatinine 0.55 L Glucose 98 Calcium 8.8 Liver Function 06/16/24 Range/Units 15:55 Total Bilirubin 0.3 (0.2-1.0) mg/dl AST 22 (13-39) U/L ALT 11 (7-52) U/L Alkaline Phosphatase 100 (34-104) U/L Albumin 3.3 L (3.4-5.0) gm/dl ECG Additional Comments: Atrial fibrillation
[2024-06-16 17:02] LABS: Troponin I High Sensitivity 12.7 pg/ml (0-20)
[2024-06-16 17:20] LABS: Partial Thromboplastin Time 27 Seconds (21-31); Prothrombin Time 10.9 Seconds (9.0-12.0)
[2024-06-16] MEDS: HEPARIN SODIUM/DEXTROSE 25,000 UNITS/500 ML BAG IV SCH ×2 (17:51→19:00)
[2024-06-16 18:16] LABS: Magnesium 2.2 mg/dl (1.7-2.4)
[2024-06-16 18:32] LABS: Thyroid Stimulating Hormone 2.783 uIu/ml (0.300-4.500)
[2024-06-16] MEDS ORDERED: ONDANSETRON INJ 2 MG/ML 2 ML VIAL IV PRN (19:17)
[2024-06-16] MEDS ORDERED: METOPROLOL TARTRATE 1 MG/ML VIAL IV PRN (19:17)
[2024-06-16] MEDS: Heparin IV Adult Wt-Based Standard *NO* INITIAL Bolus Protocol IV STA (19:29)
--- OUTSIDE RECORDS SUMMARY | 2024-06-16 21:04 | External Medical Summary | Summary of Care ---
Author Name Unknown Organization [facility] Address [address] [facility] [place] [address] Phone [phone] Care Team Providers Care Forder Operator Name Role Phone Anahi Curry DO Primary Care Provider [phone] Reason for Referral * Precert (Within 24 hrs (call dept; emergent)) - Authorized Specialty Diagnoses / Procedures Referred By Contac t Referred To Contact Radiology Diagnoses Pre-operative cardiovascular examination Abnormal EKG Procedures CT PULMONARY EMBOLUS W CONTRAST Anahi Curry DO [address] [place] [address] Referral ID Status Reason Start Date Expiration Date V isits Requested Visits Authorized [id number] Authorized 06/15/2024 999 999 Reason for Visit * Reason Comments pre-op exam Patient is here toda y for pre op exam Patient states larynx filler by ENT Patient states no concerns Patient can't speak or swallow, patients is here to help him speak Encounter Details Date Type Department Care Team (Latest Contact Info) Description 06/15/2024 11:50 AM EDT [facility] [address] [facility] [address] Anahi Curry DO [address] [place] [address] Pre-operative cardiovascular examination*; Abnormal EKG Allergies No known active allergiesdocumented as of this encounter (statuses as of 06/15/2024) Medications Medication Sig Dispensed Refills Start Date End Date Status Multiple Vitamins-Minerals (MULTIVITAMIN ADULTS 50+) TABSIndications:Dys lipidemia, goal LDL below 100 Take by mouth. 07/24/2015 Active aspirin 81 MG chewable tabletIndications:D yslipidemia, goal LDL below 100 Take 1 Tab by mouth daily. With food. 100 Tab 5 12/11/2015 Active polyethylene glycol 3350 (MIRALAX) 255 gram powderIndications:C onstipation, unspecified constipation type take 17 g by mouth by dissolving one heaping tablespoon in 8 ounces of water or juice 765 g 5 08/29/2018 Active tamsulosin (FLOMAX) 0.4 MG Capsule daily. 09/19/2018 Active e[employer]mec Natural Products (SAW PALMETTO) CAPS Take 1 Capsule by mouth in the morning and 1 Capsule before bedtime. Tumeric . Active Black Elderberry,Magallanes-Fl ower, 575 MG CAPS Take 1 Tablet by mouth in the morning and 1 Tablet before bedtime. Active CPAP every night at bedtime . Active Atorvastatin Calcium 80 MG Oral Tablet (Lipitor)Indication s:Dyslipidemia, goal LDL below 100 Take 1 Tablet by mouth in the morning. 30 Tablet 5 05/24/2023 Active Magnesium 100 MG Oral Tablet Take 1 Tablet by mouth in the morning. Active Lactinex Oral Tablet ChewableIndications :Constipation, unspecified constipation type CHEW AND SWALLOW 1 TABLET BY MOUTH THREE TIMES DAILY WITH MEALS 90 Tablet 08/25/2023 Active traZODone HCl 100 MG Oral Tablet (Desyrel) TAKE 1 TABLET BY MOUTH AT BEDTIME 90 Tablet 2 05/09/2024 Active Pembrolizumab 100 MG/4ML Intravenous Solution (Keytruda) Administer 2 mg/kg intravenously every 3 weeks. Active Lidocaine 5 % External Patch (Lidoderm)Indicatio ns:Right shoulder pain, unspecified chronicity Place 1 Patch over 12 hours topically on the skin daily. 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 PIYUSH on CPAP 05/25/2018 Diverticulosis of large intestine without hemorr edouard 09/23/2016 Constipation 09/23/2016 Low testosterone 07/24/2015 Dyslipidemia, goal LDL below 100 07/24/2015 documented as of this encounter (statuses as of 06/15/2024) Resolved Problems Problem Noted Date Diagnosed Date Resolved Date Elevated hemoglobin 06/12/2019 12/13/19 20 Elevated hemoglobin 12/29/2018 12/29/19 19 Carotid artery disease 05/25/201812/29 Elevated hemoglobin 09/06/2017 02/22/20 18 documented as of this encounter (statuses as of 06/15/2024) Immunizations Name Administration Dates Next Due COVID-19 mRNA, LNP-s, No Pre serve, 2-Dose Series (Moderna) 02/03/2021,12/28/2020 Pneumococcal Conjugate Vacc, 13 Valent (Prevnar) 12/16/2016 Pneumococcal Polysaccharide PPV23 (Pneumovax) 05/25/2018 Seasonal Influenza, PF, 6 M & above, IM , (FluLaval or Fluzone) 09/02/2020,12/13/2019,08/29/2018,09/06 Seasonal Influenza, Quadriva lent Hd (Fluzone Hd) 08/25/2023,09/23/2022,08/29/2021 Seasonal Influenza, Quadriva lent, No Preserve, IM 09/23/2016,09/16/2015 TDAP (age 10 and older)(Boostrix) 06/20/2018 Varicella Zoster Vaccine (Adult) 08/31/2016 Zoster Vaccine Recombinant (Shingrix) 03/24/2019 ,01/18/2019 documented as of this encounter Social History Tobacco Use Types Packs/Day Years Used Date Smoking Tobacco: Never Passive Smoke Exposure: Past Smokeless Tobacco: Never Comments:Smoked about 3 ciga rettes a week for 6 mths in high school Alcohol Use Standard Drinks/Week Comments Yes 0 (1 standard drink = 0.6 oz pur e alcohol) Very little PHQ-2 Answer Date Recorded PHQ Adult Total Score 0 02/16/2024 Hunger Vital Sign Answer Date Recorded Within the past 12 months, y ou worried that your food would run out before you got the money to buy more. Patient declined Within the past 12 months, t he food you bought just didn't last and you didn't have money to get more. Patient declined Childcare Answer Date Recorded Do you feel overwhelmed with taking care of a child, family member or friend? No 02/16/2024 Does your family need help f inding childcare? (Household - for ages 0-17 years) Not on file 02/16/2024 Clothing Answer Date Recorded Have you been unable to get clothing when it was really needed? No 02/16/2024 Is your family able to get c lothes or diapers when needed? (Household - for ages 0-17 years) Not on file 02/16/2024 Personal Safety Answer Date Recorded Do you feel unsafe or have concerns for your saf ety? No 02/16/2024 Do you have concerns for you r family's safety? (Household - for ages 0-17 years) Not on file 02/16/2024 Utilities Answer Date Recorded Do you have trouble paying y our heating, water, or electric bill? No 02/16/2024 Is your family able to pay t he heat, water, or electric bill? (Household - for ages 0-17 years) Not on file 02/16/2024 Does your family have access to good internet? (Household - for ages 0-17 years) Not on file 02/16/2024 Employment Status Answer Date Recorded Are you unemployed or without regular income? No 02/16/2024 Does the household have a re gular source of income? (Household - for ages 0-17 years) Not on file 02/16/2024 Social Connections Answer Date Recorded How often do you feel lonely or isolated from th ose around you? Never 02/16/2024 Financial Resource Strain Answer Date R ecorded Do you have any trouble payi ng for your medications, or do you think you might in the future? No 02/16/2024 Does your family have troubl e paying for medicine? (Household - for ages 0-17 years) Not on file 02/16/2024 Transportation Needs Answer Date Record ed READ ONLY Do you have troubl e getting a ride to medical visits or work? Never True 02/16/2024 Does your family have a hard time getting a ride to doctors visits? (Household - for ages 0-17 years) Not on file 02/16/2024 Has lack of transportation k ept you from medical appointments, meetings, work, or from getting things needed for daily living? Check all that apply. (Adult - for ages 18 years and over) Not on file 02/16/2024 Do you (or your family) have trouble finding or paying for a ride (transportation)? (Household - for ages 0-17 years) Not on file 02/16/2024 Housing Stability Answer Date Recorded Do you currently live in a s helter or have no steady place to sleep at night? No 02/16/2024 READ ONLY Do you think you a re at risk of becoming homeless? No 02/16/2024 Does your family worry about paying for your home or becoming homeless? (Household - for ages 0-17 years) Not on file 0 02/16/2024 Are you homeless or worried that you might be in the future? (Adult - for ages 18 years and over) Not on file Are you (or your family) jeffery eless or worried that you might be in the future? (Household - for ages 0-17 years) Not on file Food Insecurity Answer Date Recorded Do you need food for this week? No 02/16/2024 Are you able to get enough f ood for your family? (Household - for ages 0-17 years) Not on file 02/16/2024 Does your family need food t his week? (Household - for ages 0-17 years) Not on file 02/16/2024 Do you always have enough fo od for your family? (Household - for ages 0-17 years) Not on file 02/16/2024 Sex and Gender Information Value Date Recorded Sex Assigned at Male 12/13/2019 9:30 AM EST Gender Identity Male 12/13/2019 9:30 AM EST Sexual Orientation Straight 02/16/2024 11 :50 AM EDT Job Start Date Occupation Industry Not on file Not on file Not on file documented as of this encounter Last Filed Vital Signs Vital Sign Reading Time Taken Comments Blood Pressure 108/62 06/15/2024 11:52 AM EDT Pulse 60 06/15/2024 11:52 AM EDT Temperature 36.7 C (98.1 F) 06/15/2024 1 1:52 AM EDT Respiratory Rate 16 06/15/2024 11:5 2 AM EDT unknown Oxygen Saturation 98% 06/15/2024 11: 52 AM EDT Inhaled Oxygen Concentration - - Weight 90.6 kg (199 lb 11.2 oz) 024 11:52 AM EDT Height 188 cm (6' 2") 06/15/2024 11:52 AM EDT Body Mass Index 25.64 06/15/2024 11:52 AM EDT documented in this encounter Progress Notes * Anahi Curry, DO - 06/15/2024 12:14 PM EDT Subjective: Vinicio Collier is a 84 year old male. Chief Complaint Patient presents with pre-op exam Patient is here today for pre op exam Patient states larynx filler by ENT Patient states no concerns Patient can't speak or swallow, patients is here to help him speak HPI: 84 year old male here today for a follow up and pre op. 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 Has underwent 10 treatments of radiation. And about 2 weeks ago has not been able to talk. He cannot swallow and had feeding tube placed about 2 weeks ago. He cannot take any pills by mouth. He was referred to ENT by his oncologist due to not being able to speak. 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 He has lost weight. Not taking anything my mouth. Presents with his . He has not had any chest pain. He is very weak. Arranged to start keytruda next week. He is to get an iron infusion next week. PHM: Patient Active Problem List Diagnosis Low testosterone Dyslipidemia, goal LDL below 100 Diverticulosis of large intestine without hemorrhage Constipation Ectasis aorta (HCC) PIYUSH on CPAP Colon polyp Prediabetes Current Outpatient Medications Medication Sig Dispense Refill Multiple Vitamins-Minerals (MULTIVITAMIN ADULTS 50+) TABS Take by mouth. aspirin 81 MG chewable tablet Take 1 Tab by mouth daily. With food. 100 Tab 5 polyethylene glycol 3350 (MIRALAX) 255 gram powder take 17 g by mouth by dissolving one heaping tablespoon in 8 ounces of water or juice 765 g 5 tamsulosin (FLOMAX) 0.4 MG Capsule daily. Misc Natural Products (SAW PALMETTO) CAPS Take 1 Capsule by mouth in the morning and 1 Capsule before bedtime. Tumeric . Black Elderberry,Magallanes-Flower, 575 MG CAPS Take 1 Tablet by mouth in the morning and 1 Tablet before bedtime. CPAP every night at bedtime . Atorvastatin Calcium 80 MG Oral Tablet (Lipitor) Take 1 Tablet by mouth in the morning. 30 Tablet 5 Magnesium 100 MG Oral Tablet Take 1 Tablet by mouth in the morning. Lactinex Oral Tablet Chewable CHEW AND SWALLOW 1 TABLET BY MOUTH THREE TIMES DAILY WITH MEALS 90 Tablet 0 traZODone HCl 100 MG Oral Tablet (Desyrel) TAKE 1 TABLET BY MOUTH AT BEDTIME 90 Tablet 2 Pembrolizumab 100 MG/4ML Intravenous Solution (Keytruda) Administer 2 mg/kg intravenously every 3 weeks. Lidocaine 5 % External Patch (Lidoderm) Place 1 Patch over 12 hours topically on the skin daily. 30Patch 0 Current Facility-Administered Medications Medication Dose Route Frequency Provider Last Rate Last Admin albuterol sulfate (PROVENTIL) (2.5 MG/3ML) 0.083% inhalation solution 2.5 mg 2.5 mg Nebulizer Q4H PRN Anahi Curry DO 2.5 mg at 12/10/17 0914 Review of patient's allergies indicates: No Known Allergies Objective: BP 108/62 | Pulse 60 | Temp 36.7 C (98.1 F) (Tympanic) | Resp 98 | Ht 1.88 m (6' 2") | Wt 90.6kg (199 lb 11.2 oz) | BMI 25.64 kg/m | BSA 2.18 m Physical Exam: General: alert, ill looking, pale, and he is able to whisper Heart: irregularly irregular and premature beats Lungs: chest symmetric with normal AP diameter, no chest deformities noted, no chest wall tenderness, lungs clear to auscultation Abdomen: abdomen soft, non-tender, normal bowel sounds, no masses or organomegaly, and PEG tube intact, no signs of infection. Extremities: no edema EKG showed PVCs and sinus tachycardia. ASSESSMENT/PLAN: Pre-operative cardiovascular examination (Primary) - EKG; Future; Expected date: 06/15/2024 - EKG - CT PULMONARY EMBOLUS W CONTRAST; Future; Expected date: 06/15/2024 Abnormal EKG - CT PULMONARY EMBOLUS W CONTRAST; Future; Expected date: 06/15/2024 Concern for PE due to abnormal EKG> Will hold on clearance for anesthesia until work up is completed. 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 Anahi Curry DO documented in this encounter Nursing Notes * Shad Mcginnis MED ASSIST - 06/15/2024 11:54 AM EDT The patient has been properly identified by confirmation of name and date of . Chief Complaint Patient presents with pre-op exam Patient is here today for pre op exam Patient states larynx filler by ENT Patient states no concerns Patient can't speak or swallow, patients is here to help him speak documented in this encounter Plan of Treatment Upcoming Encounters Date Type Department Care Team (Late st Contact Info) Description 06/16/2024 2:00 PM EDT Imaging Radiology [facility], [address] [place] [address] 08/28/2024 9:50 AM EDT Office Visit [address] [place] [id number] Anahi Curry DO [address] [place] [address] Scheduled Orders Name Type Priority Associated Diagnoses Orde r Schedule EKG EKG Routine Pre-operative cardiovascular examination Expected: 06/15/2024 (Approximate), Expires: 07/16/2025 CT PULMONARY EMBOLUS W CONTRAST Medical Imaging STAT Pre-operative cardiovascular examination Abnormal EKG Expected: 06/15/2024, Expires: 07/16/2025 Health Maintenance Due Date Last Done Comments COVID-19 Vaccine ( season) 2023 10/19/2023, 02/03/2021, 12/28/2020 Influenza Vaccine (FLU shot) (#1) 2024 08/25/2023, 09/23/2022, 08/29/2021, Additional history exists HbA1c 11/17/2024 11/17/2023, 08/05/2022 Depression Screening 02/15/2025 02/16/2024 DTaP,Tdap,and Td Vaccines (2 - Td or Tdap) 06/20/2028 06/20/2018 Pneumococcal Vaccine: 65+ Years Completed 05/25/2018, 12/16/2016, 01/08/2015 Zoster Vaccines Completed 03/24/2019, 12/31, 08/31/2016 RETIRED - COLONOSCOPY-ANNUAL AGES 18-100 Discontinued 05/19/2022, 05/19/2022, 08/09/2020, Additional history exists HPV (Gardasil) Vaccine Aged Out No lo nger eligible based on patient's age to complete this topic Hepatitis B Vaccine Aged Out No longe r eligible based on patient's age to complete this topic MENINGOCOCCAL (MENACTRA/MENVEO) Aged Out No longer eligible based on patient's age to complete this topic documented as of this encounter Medical Devices Not on filedocumented as of this encounter Visit Diagnoses Diagnosis Pre-operative cardiovascular examination- Primary Abnormal EKG Nonspecific abnormal electrocardiogram (ECG) (EKG) documented in this encounter Care Teams Forder Operator Relationship Specialty Start Date End Date Anahi Curry DO [address] [place] [address] PCP - General Family Medicine 07/24/15 documented as of this encounter
--- OUTSIDE RECORDS SUMMARY | 2024-06-16 21:04 | External Medical Summary | Summary of Care ---
Author Name Unknown Organization [facility] Address [address] [facility] [place] [address] Phone [phone] Care Team Providers Care Ballaster Name Role Phone Anahi Curry DO Primary Care Provider [phone] Reason for Referral * Precert (Within 24 hrs (call dept; emergent)) - Authorized Specialty Diagnoses / Procedures Referred By Contac t Referred To Contact Radiology Diagnoses Pre-operative cardiovascular examination Abnormal EKG Procedures CT PULMONARY EMBOLUS W CONTRAST Anahi Curry DO [address] [place] [address] Referral ID Status Reason Start Date Expiration Date V isits Requested Visits Authorized [id number] Authorized 06/15/2024 999 999 Reason for Visit * Reason Comments pre-op exam Patient is here toda y for pre op exam Patient states larynx filler by ENT Patient states no concerns Patient can't speak or swallow, patients is here to help him speak Encounter Details Date Type Department Care Team (Latest Contact Info) Description 06/15/2024 11:50 AM EDT [facility] [address] [facility] [id number] Anahi Curry DO [address] [place] [address] Pre-operative cardiovascular examination*; Abnormal EKG Allergies No [...] (FLOMAX) 0.4 MG Capsule daily. 09/19/2018 Active Muzzleyc Natural Products (SAW PALMETTO) CAPS Take 1 [...] 06/15/2024 1 1:52 AM EDT Respiratory Rate 98 06/15/2024 11:5 2 AM EDT Oxygen Saturation - - Inhaled Oxygen Concentration - - Weight 90.6 [...] and has been seeing Dr Townsend at [facility]. Has underwent 10 treatments of radiation. And about 2 weeks ago has not been able to talk. He cannot swallow and had feeding tube placed about2 weeks ago. He cannot take any pills by mouth. He was referred to ENT by his oncologist due to notbeing able to speak. 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 Anahi Curry DO documented in this encounter [...] Description 06/16/2024 2:00 PM EDT Imaging Radiology [facility] 1[address] [facility], [address] [place] [address] 08/28/2024 9:50 AM EDT [facility] [address] [facility] [phone] Anahi [facility] [address] [facility] [address] Scheduled Orders Name Type Priority Associated Diagnoses [...] (EKG) documented in this encounter Care Teams Ballaster Relationship Specialty Start Date End Date Anahi Curry DO [address] [place] [facility] [place] [address] PCP - General Family Medicine 07/24/15 documented as of this encounter
[2024-06-16] MEDS: SCOPOLAMINE 1 MG/72 HR TDSY PATCH TD SCH (21:34)
[2024-06-16 22:10] LABS: Calcium 8.3 mg/dl (8.6-10.3); Creatinine Clr Calc Pharmacy 132.4 ml/min; Est GFR (Non-African American) 100.9 ml/min; Potassium 3.9 mmol/L (3.5-5.1)
[2024-06-17] MEDS: CHECK SCOPOLAMINE PATCH PLACEMENT SCH (01:19)
[2024-06-17 02:03] LABS: ANTI-Xa, UFH(UnfractionatedHep 0.37 IU/ml (0.3-0.7)
--- NOTE | 2024-06-17 08:33 | Cardiology Consultation ---
Date of Consultation June 17, 2024 Assessment & Plan (1) Pulmonary embolism: (2) Atrial fibrillation: (3) Aortic root dilation: (4) Ascending aorta dilatation: Plan 1. Pulmonary embolism: This appears to have been an incidental finding on chest CT, it should be treated as it is with anticoagulation. Perhaps this is part of his cancer diagnosis. I would agree with switching to an oral anticoagulant, I prefer Eliquis. 2. Atrial fibrillation: This was first identified May 29, 2024 and also requires anticoagulation given his elevated [id number] score. I would recommend long-term anticoagulation, for the time being he will be on anticoagulation for pulmonary embolism which should be sufficient but should not be discontinued at the end of that treatment. As far as management I do not believe is symptomatic therefore I would not be inclined to convert the rhythm. It is possible it is paroxysmal and we have identified it on several occasions, but it may be persistent at this point. We can monitor during hospitalization, long-term monitoring could be considered if we are considering cardioversion but if we are not going to proceed with cardioversion that would not be necessary. At this point I would not consider cardioversion although if symptoms become evident we can consider it. I do not believe further hospitalization is required for his arrhythmia. I am going to start some rate control medications, but we can use low doses since his heart rate is overall not very elevated and his blood pressure is not elevated. I am therefore going to start 12.5 mg of metoprolol tartrate through his NG tube, that may not make much difference to his heart rate but we can gradually increase as an outpatient. 3. Aortic stenosis: This has been identified by recent echocardiogram on a background of aortic sclerosis, the valve area would not suggest any for further evaluation. 4. Aortic root dilatation: This is not in the range where we consider further evaluation or treatment. 5. Ascending aortic dilatation: This is not in a range where we would consider further evaluation or treatment. At this point I do not think he requires further evaluation or treatment in the hospital from the atrial fibrillation standpoint. We can follow-up in the of l[facility] and make sure his heart rate remains relatively well-controlled. From the standpoint of the atrial fibrillation anticoagulation can be started and continued as an outpatient. I will leave short and long-term treatment of his pulmonary emboli to his other physicians. As far as his surgery goes there is no contraindication to surgery with his atrial fibrillation, that could easily be handled and pausing his anticoagulation would not be an issue as far as the rhythm. I did tell him and his family that the other issue of pulmonary emboli and discontinuation of anticoagulation for surgery is a different consideration and not 1 that I would back. I will make sure that he has a follow-up appointment in the office to see Dr. Khalil. But does not have to be for several weeks to a month regardless of his surgical plans. History of Present Illness Reason for Consultation: Atrial fibrillation Attending Physician: Cecilio Madrigal MD History of Present Illness This is an 84-year-old male who follows with Dr. Khalil in our office and has a history of hypercholesterolemia, aortic sclerosis, a mildly dilated aortic root and ascending aorta. He also has metastatic esophageal cancer and a feeding tube. He was last seen in the office March 27, 2024 and was doing well, echocardiography February 21, 2024 showed normal left ventricular systolic function with mild aortic stenosis (aortic valve area reported as 2.3 cm and a mean pressure gradient of 13.4 mmHg). His aortic root was dilated to 4.0 cm and is ascending aorta to 3.9 cm. To my knowledge he does not have a long history of atrial fibrillation however his family tells me the time of his port implantation which I believe was May 28, 2024 he had a brief episode of atrial fibrillation felt related to the procedure. However his electrocardiogram May 29, 2024 did show rate controlled atrial fibrillation and a prior electrocardiogram from May 11, 2024 was essentially normal. Atrial fibrillation was confirmed on this admission and he has remained in it since presentation. It may be paroxysmal or now persistent. He presents to the emergency room on the afternoon of June 16, [address] scan showed pulmonary embolism he did not have a lot of symptoms related to it. An electrocardiogram done June 16, 2024 at 1535 shows atrial fibrillation with a heart rate of 90 bpm. A high-sensitivity troponin measurement on presentation was normal. He was started on heparin. At the time my evaluation and his family (his and I believe his daughter) are in the room, he cannot communicate very well but he is alert and aware and by all indications he has no symptoms related to the atrial fibrillation. I therefore do not know if he has had longstanding paroxysmal atrial fibrillation or if it is more recent. An echocardiogram was done while I was in the room, on my review that does not show any significant abnormality and no evidence of pericardial metastases although that is a possibility to explain atrial fibrillation. He has no chest discomfort and no change in his exercise ability. He is very worried about being able to undergo his upcoming surgery, he is anxious to have that done and does not want it postponed. Allergies Allergy/AdvReac Type Severity Reaction Status Date / Time No Known Allergies Allergy Verified 06/12/24 11:49 Home Medications Medication Instructions Recorded Confirmed Type ferric carboxymaltose 50 mg 750 mg IV Q7D 06/12/24 06/16/24 History iron/mL intravenous solution Patient History Medical History Dehydration pt. unable to swallow, was getting IV Fluid during PAT assessment, was to see PCP today but states he cancelled and is not planning to see PCP prior to surgery on 05/29. last seen ~ 3 months Anemia Dysphagia currently unable to take meds Right-sided chest pain Daily, fairly constant right sided chest tenderness since Mid January 2024. Noted at rest/unchanged with activity. General surgery visit 04/04/24, "Tenderness this is more lateral and on his chest wall along his fifth and sixth rib line.." Symptoms improved with Tylenol. Hypogonadism Low testosterone Nocturia Aortic root dilation Echo 01/2024: Mild aortic root dilatation (4.0cm in diameter) Diastolic dysfunction follows with Dr. Khalil Aortic stenosis Echo 01/2024: Mild aortic stenosis (CHERIE 2.3 cm2, MG 13.4mmhg) Mitral valve regurgitation Echo 01/2024: Mild MR LVH (left ventricular hypertrophy) BPH (benign prostatic hyperplasia) Gallstones current Ascending aorta dilatation Echo 01/2024: Mildly dilated ascending aorta (3.9 cm in diameter) History of COVID-19 (07/2022) Early 07/2022- fatigue, resolved Surgical History History of surgery (05/29/24) Esophagogastroduodenoscopy, with open Gastrostomy Tube placement - Jose Mcdonough, DO History of insertion of central venous access port (05/11/24) left subclavian H/O hernia repair Left Laparoscopic Repair of Recurrent Inguinal Hernia with Mesh, Laparoscopic Ventral Hernia Repair (2 cm) with Mesh, Open Repair of an Incisional Hernia H/O ventral hernia repair Laparoscopic Ventral Hernia Repair with Mesh History of esophagogastroduodenoscopy (EGD) (2023) Hx of ventral hernia repair S/P right inguinal hernia repair (03/2021) RIH repair S/P left inguinal hernia repair (03/2022) 06/2021 LIH repair 03/2022 LIH repair Hx of oral surgery Broken tooth repair History of colonoscopy (2021) History of hip replacement R/L Family History Father , 84yo Myocardial infarction Brother Myocardial infarction Mother , in her 80s Hypertension Multiple myeloma Brother , at No problems noted. Brother , 2yo Acute meningitis Son No problems noted. Son No problems noted. Daughter No problems noted. Daughter No problems noted. 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 Physical Exam Physical Exam: Constitutional: Alert, cooperative and in no distress. He is resting in bed. HEENT: Unremarkable Neck: No jugular venous distention, carotid pulses are irregular but otherwise normal and equal bilaterally without bruits. Pulmonary: Clear to auscultation bilaterally. Cardiac: Irregular rhythm with a grade 2/6 crescendo decrescendo murmur at the base, no gallop or rub. Abdomen: Soft, nontender with normal bowel sounds. Extremities: No edema. Distal pulses intact. Neurologic: No focal findings. Gait was not tested. Skin: No rash, ecchymoses or petechiae. Results & Data Vital Signs (Past 12 Hours) Vital Signs Temp Pulse Pulse Resp BP Pulse Ox O2 Del Method 06/17/24 08:25 37.2 C 86 18 99/65 L 93 Room Air 06/17/24 07:46 84 06/17/24 04:49 37.1 C 87 20 103/70 92 Room Air 06/17/24 00:00 100 H 06/16/24 23:13 36.9 C 87 20 95/57 L 93 Room Air Laboratory Results Cardiac Enzymes 06/16/24 Range/Units 15:55 AST 22 (13-39) U/L Troponin I High Sens 12.7 (0-20) pg/ml Coagulation 06/16/24 Range/Units 15:55 PT 10.9 (9.0-12.0) Seconds APTT 27 (21-31) Seconds CBC 06/16/24 Range/Units 15:55 WBC 9.48 (4.8-10.8) K/ul RBC 3.41 L (4.70-6.10) M/uL Hgb 10.4 L (14.0-18.0) g/dl Hct 32.9 L (42.0-52.0) % Plt Count 431 H (130-400) K/uL Neut # (Auto) 8.36 H (1.40-6.50) K/uL Lymph # (Auto) 0.24 L (1.20-3.40) K/uL Hooker # (Auto) 0.75 H (0.11-0.59) K/uL Eos # (Auto) 0.06 (0.00-0.50) K/uL Baso # (Auto) 0.03 (0.00-0.20) K/uL Comprehensive Metabolic Panel 06/16/24 06/16/24 Range/Units 15:55 21:29 Sodium 137 137 (136-145) mmol/L Potassium 4.1 3.9 (3.5-5.1) mmol/L Chloride 102 104 (98-107) mmol/L Carbon Dioxide 29 28 (21-32) mmol/L BUN 22 21 (6-23) mg/dl Creatinine 0.55 L 0.50 L (0.6-1.4) mg/dl Glucose 98 158 H (70-99(Fasting)) mg/dl Calcium 8.8 8.3 L (8.6-10.3) mg/dl AST 22 (13-39) U/L ALT 11 (7-52) U/L Alkaline Phosphatase 100 (34-104) U/L Total Protein 6.4 (6.0-8.3) gm/dl Albumin 3.3 L (3.4-5.0) gm/dl Intake and Output 06/16/24 06/17/24 06/17/24 22:59 06:59 14:59 Intake Total 160 / 582.167 422.167 / 582.167 Output Total 450 / 700 250 / 700 Balance -290 / -117.833 172.167 / -117.833 Intake: IV 222.167 / 222.167 Heparin Sodium/Dextrose 25,000 222.167 / 222.167 units In 500 ml @ 1,550 UNITS/ HR 31 mls/hr IV .[id number] [facility] Rx# :[id number] Oral 160 / 360 200 / 360 Output: Urine 450 / 700 250 / 700 Other: Weight 93.8 kg 93.1 kg Weight Measurement Method Built in Bedscale Built in [facility] Diagnostic Findings Telemetry: Atrial fibrillation, the rate is reasonably well-controlled although at times somewhat fast. No slow rates. Echocardiogram: This has not been read as yet however I reviewed the echocardiogram after he was done and it does not show any significant abnormality not identified on his recent echocardiogram as an outpatient. PG Care Time/CCT Total # of Minutes Spent Total Time Spent with Patient: Total time spent is greater than 50% in coordination of care (as documented) at patient's floor/unit and/or counseling patient: Coding Level of Care Code 71317 INT INP/OBS CARE 3/75MIN Diagnoses Pulmonary embolism I26.99 Acute cor pulmonale presence: unspecified Chronicity: acute Pulmonary embolism type: unspecified Atrial fibrillation I48.91 Atrial fibrillation type: unspecified Aortic root dilation I77.810 Ascending aorta dilatation I77.810 (1) Pulmonary embolism Acute cor pulmonale presence: unspecified Chronicity: acute Pulmonary embolism type: unspecified Qualified Code(s): I26.99 - Other pulmonary embolism without acute cor pulmonale (2) Atrial fibrillation Atrial fibrillation type: unspecified Qualified Code(s): I48.91 - Unspecified atrial fibrillation
[2024-06-17 08:40] LABS: Hemoglobin 10.6 g/dl (14.0-18.0); Mean Corpuscular Hgb Conc 32.1 g/dL (32.0-36.0); Mean Corpuscular Volume 96.5 fL (80.0-100.0); Mean Platelet Volume 8.7 fL (9.4-12.4); Platelet Count 423 K/uL (130-400); RDW Coefficient of Variation 13.9 % (11.5-14.5); RDW Standard Deviation 48.5 fL (36.4-46.3); Red Blood Count 3.42 M/uL (4.70-6.10); White Blood Count 8.04 K/ul (4.8-10.8)
[2024-06-17 09:12] LABS: ANTI-Xa, UFH(UnfractionatedHep 0.39 IU/ml (0.3-0.7)
[2024-06-17] MEDS: ACETAMINOPHEN 1,000 MG/100 ML VIAL IV PRN (09:21)
[2024-06-17] MEDS: APIXABAN 5 MG TABLET PO SCH (11:57)
[2024-06-17] MEDS: METOPROLOL TARTRATE 25 MG TAB NG SCH (11:57)
--- NOTE | 2024-06-17 14:12 | Discharge Summary ---
Date of Service June 17, 2024 Admission HPI Per Admitting Provider Patient is 84 year old male with PMH metastatic esophageal cancer s/p radiation and on chemo, dyslipidemia, PIYUSH presented to ER for abnormal CTA chest. History obtained from patient, patient's and daughter at bedside as well as outpatient chart review. Patient with metastatic esophageal cancer and currently has dysphasia and dysphagia and is unable to swallow his secretions. He has feeding tube in place and receiving enteral nutrition and free water four times a day. He is status post palliative radiation x 10 treatments finished on 06/06/2024 per patient's daughter. Seen at PCP's office yesterday for pre-op evaluation for upcoming vocal cord surgery. EKG in office was noted to have atrial fibrillation, rate controlled. It was recommended patient have CTA chest to rule out PE however patient had scheduled treatments at cancer center so patient and her family decided to have CTA done today. Patient reports has intermittently been coughing and spitting up clear "spit" that sometimes has red blood tinge. States last time noted to cough up blood was this morning. He denies any shortness of breath, chest pain, extremity pain redness or edema. Denies history prior PE/DVT. Following with oncology, Dr De La Torre. Yesterday had chemo and IV iron transfusion. Patient's daughter states in May during procedure he was noted to be in atrial fibrillation. Denies fever/chills, diaphoresis, N/V/D/C, TORREZ, dizziness, syncope, vision changes, neck pain, CP, SOB, palpitations, otalgia, rhinorrhea, abdominal pain, paresthesias, extremity weakness, extremity edema, rashes, urinary symptoms, falls. Reviewed 06/16/24 CTA Chest: Impression: 1. Small burden right lower segmental/subsegmental pulmonary emboli. No evidence of right heart strain. 2. Esophageal cancer with pulmonary metastases and mediastinal adenopathy. 3. Small right pleural effusion Admission Exam Per Admitting Provider General: +spitting saliva in cup, otherwise no distress, chronic ill appearing elderly male Head: normocephalic, atraumatic Eyes: conjunctiva non-injected, anicteric ENT: normal inspection external ears, nose, mucous membranes moist, speaks in w hisper Neck: supple, trachea midline Lungs: clear, no respiratory distress, no wheezing/rhonchi/rales CV: irregularly irregular, rate 98, no pretibial edema; chest wall with left upper port without overlying erythema Abd: +feeding tube without surrounding erythema, normal BS, soft, non-tender Ext: no cyanosis, no calf tenderness Neuro: A&O x 3, no focal deficits noted, normal affect Skin: warm, dry Principal Diagnosis Pulmonary embolism Atrial fibrillation Discharge Exam Constitutional: WD/WN, vitals as above, NAD, sitting up in bed, pleasant, conversing easily Respiratory: normal respiratory effort, lungs clear to auscultation, no wheeze, rales, rhonchi. Normal insp/exp effort, no accessory muscle use Cardiovascular: RRR, no murmur, no edema Vessels: no JVD or carotid bruit Chest: normal inspection of chest Abdomen: normal bowel sounds, soft, nontender, no hepatosplenomegaly Musculoskeletal: no cyanosis or clubbing, extremities motor strength 5/5 Skin: no rashes, warm and dry normal turgor Neurologic: PERRL, EOMI, accommodation nl, no face palsy, no dysarthria CN's II- XI intact bilaterally and moves all extremities Psychiatric: A+Ox3, euthymic affect Discharge Data Allergies Allergy/AdvReac Type Severity Reaction Status Date / Time No Known Allergies Allergy Verified 06/12/24 11:49 Consultations 06/16/24 16:23 ED Decision to Admit Stat 06/16/24 19:17 Consult Cardiology Routine Hospital Course (1) Pulmonary embolism: (2) Atrial fibrillation: (3) Esophageal cancer: (4) Dysphonia: (5) Vocal fold paralysis, left: (6) PIYUSH (obstructive sleep apnea): (7) Hyperlipidemia: Plan Patient is 84 year old male with PMH metastatic esophageal cancer s/p radiation and on chemo, dyslipidemia, PIYUSH presented to ER for abnormal CTA chest He was found to have right lower segmental/subsegmental PE. He was recently diagnosed with new onset A-fib as well. Patient was admitted to medical floor and was started on heparin drip as per recommendation by oncology. Cardiology was also consulted for comanagement for atrial fibrillation Patient was observed overnight. He was switched over to Eliquis 10 mg twice a day for next 7 days, 5mg twice daily then after. He was also prescribed metoprolol 12.5 mg twice a day as per cardiology recommendation. Patient to follow-up with PCP and oncology as outpatient Please note the above document was generated using voice recognition software. It may contain grammatical, syntax or spelling errors. Any formal questions or concerns about the content, text or information contained within the body of this dictation should be directly addressed to the provider for clarification Total Time Total Time Spent Total Time Spent (In Minutes): 45 Total Time Includes: Examination of the Patient, Discharge Planning, Medication Reconciliation, Communication With Other Providers and Other Discharge Plan Discharge Items Patient Disposition: Home - Self-Care Reason For Visit: PE Discharge Diagnosis: 1) Pulmonary embolism 2) Atrial Fibrillation Activity: Resume your previous activity Non-emergency contact: Primary Care Provider Call non-emergency contact if: you have any medication questions and your symptoms worsen Follow-up/Referrals: Anahi Curry DO [Primary Care Provider] - Diet: Regular Addtl Attending Provider Instructions: You were admitted to the hospital due to blood clot in your lungs. You are prescribed Eliquis 5 mg tablets. Please take it as follows: 1) Take 10 mg (2 tablets) twice a day for 7 days starting tonight (until May 24, 2024), then 2) Take 5 mg 1 tablet twice a day (Starting 2023) You were also found to have irregular heart rhythm. You were evaluated by cardiology during the hospitalization. You are prescribed metoprolol 12.5 mg to be taken twice a day. You are prescribed a scopolamine patch to be used every 3 days. An appointment with your primary care doctor will be made for sometime next week. Please follow-up with oncology as well. Pending Studies at Discharge: No Stand-Alone Forms: [facility], Smoking Cessation Medications and DC Order Prescriptions: New Eliquis 5 mg Tablet 5 mg PO BID Qty: 74 0RF scopolamine base [Transderm-Scop] 1 mg over 3 days Patch 3 Day 1 patch transdermal Q72H Qty: 10 0RF metoprolol tartrate 25 mg Tablet 12.5 mg NG BID Qty: 60 0RF Continued ferric carboxymaltose 50 mg iron/mL solution 750 mg IV Q7D Discharge Orders: Discharge Order (Routine); Ordered 06/17/24 Ordered By: Cecilio Cazares/Other Patient Handouts: Metoprolol Oral Tablet, Pulmonary Embolism Admission Data Admit Date/Time: 06/16/24 17:02 Attending Provider: Cecilio Madrigal Admit Provider: Too Quiros Primary Care Provider: Anahi Curry Other Providers: Too Quiros; Gabriel Khalil Other Interventions: Discharge Summary Assessment (RN) Last Done: 06/17/24 13:01
--- NOTE | 2024-06-17 16:21 | XCELERA ---
[id number]
--- NOTE | 2024-06-17 17:41 | Communication Note ---
Date of Service: June 17, Code 44 attestation: The chart of the patient reviewed. Agree with the discharge planning done by the attending. By CMS guidelines, a determination that the admission or continued stay is not medically necessary has been made by a member of the UR committee and a physician for this hospital stay, therefore a Code 44 will be completed and the Inpatient admission will be changed to outpatient. Dr. Lavon Parra Member UR committee
== END 2024-06-17 13:02 | disposition home or self-care (01) | DRG 176 ==
LOC: ED 15:10 → SUATTDRO 17:02 → 2N 17:02 → INTOOBSV 17:02 → 2N 19:00